=== PATIENT | female | born 1995 | race American Indian/Alaskan Native ===

== ENCOUNTER 2016-06-02 16:21 | Emergency (ER) | payer SELFPAY ==
[2016-06-02] MEDS ORDERED: TYLENOL ONE (19:27)
[2016-06-02] MEDS ORDERED: TYLENOL PO ONE (20:03)
--- NOTE | 2016-06-02 21:14 | Emergency Department Report ---
HPI - General Chief Complaint: Upper Respiratory Infection Time Seen by Provider: 06/02/16 21:08 - HPI HPI: 20-year-old female no past medical history comes in for complaint of fever bodyaches, headache,chills, sore throat onset 2 days ago. Patient denies any nausea no vomiting. She denies any sick contact is not traveled outside the country in the last 30 days only allergies is to iodine. ED Past Medical Hx - Past Medical History Hx Asthma: Yes - Social History Smoking Status: Never Smoker Substance Use Type: Marijuana - Medications Home Medications: Home Medications Medication Instructions Recorded Confirmed Last Taken Type Ibuprofen [Motrin] 800 mg PO Q8HR PRN #60 tablet 12/28/14 Unknown Rx traMADol [Ultram] 50 mg PO Q6HR PRN #60 tablet 12/28/14 Unknown Rx Amoxicillin [Amoxicillin TAB] 875 mg PO BID #20 tablet 10/24/15 Unknown Rx Ibuprofen [Motrin 800 MG tab] 800 mg PO Q8HR PRN #30 tablet 10/24/15 Unknown Rx Famotidine [Pepcid] 20 mg PO BID #20 tablet 12/10/15 Unknown Rx diphenhydrAMINE [Benadryl CAP] 25 mg PO Q6HR PRN #25 capsule 12/10/15 Unknown Rx methylPREDNISolone [Medrol] 4 mg PO DAILY #1 tab.ds.pk 12/10/15 Unknown Rx ED Review of Systems ROS: Stated complaint: FEVER,SORE THROAT Other details as noted in HPI Constitutional: chills, fever ENT: throat pain Respiratory: denies: cough, shortness of breath Skin: as per HPI Neurological: headache Physical Exam - Physical Exam Vital Signs: Vital Signs 06/02/16 06/02/16 16:44 20:03 Temperature 101.3 F H Pulse Rate 110 H Respiratory 22 18 Rate Blood Pressure 128/82 O2 Sat by Pulse 99 Oximetry Physical Exam: GENERAL: Alert and oriented x3, no apparent distress, Normal Gait, atraumatic. HEAD: Head is normocephalic and a-traumatic. EYES: Extra ocular muscles are intact. Pupils are equal, round, and reactive to light and accommodation. EARS: symetrical, atraumatic, non tender, ear canal clear and moderate cerumen, tympanic membrance non inflamed. gross auditory nml bilaterally. NOSE: Nose symetrical, Nontender,Nares appeared normal. MOUTH:Mouth is well hydrated and without lesions. Tonsils erythematous and swollen, Uvula midline, Tongue not elevated. Mucous membranes are moist. Posterior pharynx with exudate . Patent airways. NECK: Supple. Non edematous, No carotid bruits. No lymphadenopathy or thyromegaly. LUNGS: Symetrical with respiration, No wheezing, no rales or crackles, CTAB. HEART: S1, S2 present, regular rate and rhythm without murmur, no rubs, no gallops. NEUROLOGIC: No focal Deficit, Cranial nerves II through XII are grossly intact. No loss of sensation, No facial droop, Negative rhomberg. PSYCHIATRIC: Mood is congruent with affect, denies suicidal or homicidal ideations. SKIN: Warm and dry, No lesions, No ulceration or induration present ED Course Vital Signs 06/02/16 06/02/16 16:44 20:03 Temperature 101.3 F H Pulse Rate 110 H Respiratory 22 18 Rate Blood Pressure 128/82 O2 Sat by Pulse 99 Oximetry - Reevaluation(s) Reevaluation #1: 06/02/16 21:17 Patient's been evaluated by this provider fast track. Strep came back positive. Patient was given Tylenol in triage she reports feels somewhat better. We'll discharge patient on amoxicillin 875 mg 1 tablet by mouth 3 times a day for 10 days. Have her follow with the primary care provider she can take Tylenol or Motrin for pain ED Medical Decision Making - Medical Decision Making Assessment evaluated fast track. By this provider. We will give patient penicillin G1.2 1.2 million units IM once. Critical care attestation.: If time is entered above; I have spent that time in minutes in the direct care of this critically ill patient, excluding procedure time. ED Disposition Clinical Impression: Streptococcal pharyngitis Disposition: DISCHARGED TO HOME OR SELFCARE Is pt being admited?: No Does the pt Need Aspirin: No Condition: Stable Instructions: Strep Throat (ED) Additional Instructions: And take Tylenol Motrin for pain. He been treated with penicillin for your strep infection. Follow-up with the primary care provider if symptoms get worse Referrals: PRIMARY CARE, [Primary Care Provider] - 3-5 Days [facility] [Outside] - 3-5 Days Forms: Work/School Release Form(ED)
[2016-06-02] MEDS ORDERED: BICILLIN L-A IM ONE (21:24)
[2016-06-02 22:39] VITALS: BP 122/89
== END 2016-06-02 22:40 | disposition home or self-care (01) ==
LOC: ED 16:21
DX: J02.0 Streptococcal pharyngitis (principal); J45.909 Unspecified asthma, uncomplicated; F12.90 Cannabis use, unspecified, uncomplicated
CPT/HCPCS: 87400; 87430; 96372; 99283; J0561

== ENCOUNTER 2017-01-01 13:27 | Emergency (ER) | payer SELFPAY ==
[2017-01-01 14:06] VITALS: BP 118/92
[2017-01-01 17:45] LABS: Bilirubin,Urine NEG (Negative); Blood,Urine NEG (Negative); Ketones,Urine NEG (Negative); Leukocyte Esterase,Urine MOD (Negative); Mucus,Urine FEW /HPF; Nitrite,Urine NEG (Negative); Protein,Urine <15 mg/dL mg/dL (Negative); Urobilinogen,Urine < 2.0 mg/dL (<2.0)
--- NOTE | 2017-01-01 18:18 | Emergency Department Report ---
ED Female HPI - General Chief complaint: Urogenital-Female Stated complaint: UROGENTELIA-FEMALE Time Seen by Provider: 01/01/17 16:28 Source: patient Mode of arrival: Ambulatory Limitations: No Limitations - History of Present Illness Initial comments: This is a 21-year-old female nontoxic, well nourished in appearance, no acute signs of distress presents to the ED complaining of that presents with vaginal bumps, vaginal odor, and painful urination x1 week. Patient stated she had she got drunk, smoked week and did ecstacy and performed a orgy and then a week later developed these symptoms. Patient also stated she had been using a razor to the area and then developed these bumps. Patient denies any vaginal discharge, fever, chills, nausea, vomiting, chest pain, shortness of breath, polyuria, hematuria, numbness or tingling. Patient states allergies to iodine. Medical history includes asthma. Patient states she is concerned STD and wanted to be treated empirically. MD Complaint: dysuria, possible STD -: Gradual, week(s) (1) Radiation: non-radiating Severity: mild Severity scale (0 -10): 6 Quality: burning Consistency: constant Improves with: none Worsens with: none Are you Now?: No Associated Symptoms: dysuria. denies: vaginal discharge, vaginal bleeding, abdominal pain, nausea/vomiting, fever/chills, headaches, loss of appetite, hematuria, rash, seizure, shortness of breath, syncope, weakness - Related Data Sexually active: Yes Previous Rx's Medication Instructions Recorded Last Taken Type Ibuprofen [Motrin] 800 mg PO Q8HR PRN #60 tablet 12/28/14 Unknown Rx traMADol [Ultram] 50 mg PO Q6HR PRN #60 tablet 12/28/14 Unknown Rx Amoxicillin [Amoxicillin TAB] 875 mg PO BID #20 tablet 10/24/15 Unknown Rx Ibuprofen [Motrin 800 MG tab] 800 mg PO Q8HR PRN #30 tablet 10/24/15 Unknown Rx Famotidine [Pepcid] 20 mg PO BID #20 tablet 12/10/15 Unknown Rx diphenhydrAMINE [Benadryl CAP] 25 mg PO Q6HR PRN #25 capsule 12/10/15 Unknown Rx methylPREDNISolone [Medrol] 4 mg PO DAILY #1 tab.ds.pk 12/10/15 Unknown Rx metroNIDAZOLE [Flagyl] 500 mg PO Q12HR #14 tab 01/01/17 Unknown Rx Allergies Allergy/AdvReac Type Severity Reaction Status Date / Time bee venom protein (honey bee) Allergy Anaphylaxis Verified 01/01/17 14:07 iodine Allergy Rash Verified 06/02/16 16:47 ED Review of Systems ROS: Stated complaint: UROGENTELIA-FEMALE Other details as noted in HPI Constitutional: denies: chills, fever Eyes: denies: eye pain, eye discharge, vision change ENT: denies: ear pain, throat pain Respiratory: denies: cough, shortness of breath, wheezing Cardiovascular: denies: chest pain, palpitations Endocrine: no symptoms reported Gastrointestinal: denies: abdominal pain, nausea, diarrhea Genitourinary: dysuria. denies: urgency, discharge Musculoskeletal: denies: back pain, joint swelling, arthralgia Skin: denies: rash, lesions Neurological: denies: headache, weakness, paresthesias Psychiatric: denies: anxiety, depression Hematological/Lymphatic: denies: easy bleeding, easy bruising ED Past Medical Hx - Past Medical History Previous Medical History?: Yes Hx Asthma: Yes - Surgical History Past Surgical History?: No - Social History Smoking Status: Current Every Day Smoker Substance Use Type: None - Medications Home Medications: Home Medications Medication Instructions Recorded Confirmed Last Taken Type Ibuprofen [Motrin] 800 mg PO Q8HR PRN #60 tablet 12/28/14 Unknown Rx traMADol [Ultram] 50 mg PO Q6HR PRN #60 tablet 12/28/14 Unknown Rx Amoxicillin [Amoxicillin TAB] 875 mg PO BID #20 tablet 10/24/15 Unknown Rx Ibuprofen [Motrin 800 MG tab] 800 mg PO Q8HR PRN #30 tablet 10/24/15 Unknown Rx Famotidine [Pepcid] 20 mg PO BID #20 tablet 12/10/15 Unknown Rx diphenhydrAMINE [Benadryl CAP] 25 mg PO Q6HR PRN #25 capsule 12/10/15 Unknown Rx methylPREDNISolone [Medrol] 4 mg PO DAILY #1 tab.ds.pk 12/10/15 Unknown Rx metroNIDAZOLE [Flagyl] 500 mg PO Q12HR #14 tab 01/01/17 Unknown Rx ED Physical Exam - General Limitations: No Limitations General appearance: alert, in no apparent distress - Head Head exam: Present: atraumatic, normocephalic, normal inspection - Eye Eye exam: Present: normal appearance, PERRL, EOMI. Absent: scleral icterus, conjunctival injection, nystagmus, periorbital swelling, periorbital tenderness Pupils: Present: normal accommodation - ENT ENT exam: Present: normal exam, normal orophraynx, mucous membranes moist, TM's normal bilaterally, normal external ear exam - Neck Neck exam: Present: normal inspection, full ROM. Absent: tenderness, meningismus, lymphadenopathy, thyromegaly - Respiratory Respiratory exam: Present: normal lung sounds bilaterally. Absent: respiratory distress, wheezes, rales, rhonchi, stridor, chest wall tenderness, accessory muscle use, decreased breath sounds, prolonged expiratory - Cardiovascular Cardiovascular Exam: Present: regular rate, normal rhythm, normal heart sounds. Absent: systolic murmur, diastolic murmur, rubs, gallop - GI/Abdominal GI/Abdominal exam: Present: soft, normal bowel sounds. Absent: distended, tenderness, guarding, rebound, rigid, diminished bowel sounds - Rectal Rectal exam: Present: deferred - External exam: Present: normal external exam, other (small erythma papules which looks like irritation and consistant with Pseudofolliculitis barbae. [employer] present during exam.). Absent: erythema, swelling, lesions, lacerations, ecchymosis, bleeding Speculum exam: Present: normal speculum exam, cervical discharge (yellow white thick with foul odor), other ([employer] senior officer present during exam.). Absent: erythema, vaginal discharge, vaginal bleeding, foreign body, tissue, laceration Bi-manual exam: Present: normal bi-manual exam, other ([employer] senior officer present during exam.). Absent: cervical motion tendernes, adnexal tenderness, adnexal mass, uterine enlargement, uterine tenderness - Extremities Exam Extremities exam: Present: normal inspection, full ROM, normal capillary refill. Absent: tenderness, pedal edema, joint swelling, calf tenderness - Back Exam Back exam: Present: normal inspection, full ROM. Absent: tenderness, CVA tenderness (R), CVA tenderness (L), muscle spasm, paraspinal tenderness, vertebral tenderness, rash noted - Neurological Exam Neurological exam: Present: alert, oriented X3, CN II-XII intact, normal gait, reflexes normal - Psychiatric Psychiatric exam: Present: normal affect, normal mood - Skin Skin exam: Present: warm, dry, intact, normal color. Absent: rash ED Course Vital Signs 01/01/17 01/01/17 01/01/17 13:38 13:55 13:58 Temperature 98.2 F 98.2 F 97.9 F Pulse Rate 94 H 94 H 74 Respiratory 14 16 18 Rate Blood Pressure 140/77 118/92 Blood Pressure 140/77 [Right] O2 Sat by Pulse 100 100 99 Oximetry - Reevaluation(s) Reevaluation #1: 01/01/17 18:29 Patient is speaking in full sentences with no signs of distress noted. ED Medical Decision Making - Medical Decision Making 21-year-old female that presents with bacterial vaginosis. Patient was examined by me patient is stable. Patient received Rocephin and azithromycin in the ED because patient is concerned and wants to be treated for empirically for STD. Patient will be treated with Flagyl 7 days. Patient was instructed to follow-up with a primary care doctor in 3-5 days or if symptoms worsen and continue return to emergency room as soon as possible possible. Patient is hemodynamically stable with stable vital signs. Patient states he is feeling better. At time time of discharge, the patient does not seem toxic or ill in appearance. No acute signs of distress noted. Patient agrees to discharge treatment plan of care. No further questions noted by the patient. Patient is also instructed to speak to her sexual partners for possible STD. Critical care attestation.: If time is entered above; I have spent that time in minutes in the direct care of this critically ill patient, excluding procedure time. ED Disposition Clinical Impression: Possible exposure to STD, Bacterial vaginosis Disposition: DC-01 TO HOME OR SELFCARE Is pt being admited?: No Does the pt Need Aspirin: No Condition: Stable Instructions: Bacterial Vaginosis (ED), Safe Sex (ED), Metronidazole (By mouth) Additional Instructions: Follow-up with a primary care doctor in 3-5 days or if symptoms worsen and continue return to emergency room as soon as possible possible. Do no drink any alcohol while taking antibiotics. Prescriptions: metroNIDAZOLE [Flagyl] 500 mg PO Q12HR #14 tab Referrals: PRIMARY MD JOCELYNE [Primary Care Provider] - 3-5 Days NUZHAT STEPHEN MD [Staff Physician] - 3-5 Days CHLOE ROSE MD [Staff Physician] - 3-5 Days [facility] [Outside] - 3-5 Days [facility] [Outside] - 3-5 Days Forms: STI Treatment and Prevention, Work/School Release Form(ED)
[2017-01-01] MEDS: XYLOCAINE 1% MPF 5 mL INFILTRATI ONE (19:09)
[2017-01-01] MEDS: ZITHROMAX PO ONE (19:09)
[2017-01-01] MEDS: ROCEPHIN IM ONE (19:09)
== END 2017-01-01 19:30 | disposition home or self-care (01) ==
LOC: ED 13:27
DX: N76.0 Acute vaginitis (principal); J45.909 Unspecified asthma, uncomplicated; F17.200 Nicotine dependence, unspecified, uncomplicated; Z91.030 Bee allergy status; Z91.048 Other nonmedicinal substance allergy status
CPT/HCPCS: 81001; 81025; 87210; 87591; 96372; 99284; J0696

== ENCOUNTER 2017-07-02 08:22 | Emergency (ER) | payer SELFPAY ==
[2017-07-02 08:30] VITALS: BP 142/90
[2017-07-02] MEDS ORDERED: ROBITUSSIN PO ONE (09:39)
[2017-07-02] MEDS ORDERED: DELTASONE PO ONE (09:39)
[2017-07-02] MEDS ORDERED: DUONEB *Not for PRN Use IH ONE (09:39)
--- NOTE | 2017-07-02 09:47 | Emergency Department Report ---
Minor Respiratory - HPI Chief Complaint: Adult Asthma Stated Complaint: TROUBLE BREATHING Time Seen by Provider: 07/02/17 09:03 Duration: 2 Days Minor Respiratory: Yes Able to Tolerate Fluids, Yes Cough, No Rhinorrhea, No Sore Throat, No Ear Pain, No Sick Contacts, No Hemoptysis, No Chest Pain, No Shortness of Breath, No Fever Other History: Patient is a 21-year-old female who presents to the ED complaining of cough since yesterday. Patient admits history of asthma and takes Proventil inhaler. She denies fever nausea vomiting abdominal pain, chest pain shortness of breath or any other problem ED Review of Systems ROS: Stated complaint: TROUBLE BREATHING Other details as noted in HPI Constitutional: denies: chills, fever Eyes: denies: eye pain, eye discharge, vision change ENT: denies: ear pain, throat pain Respiratory: cough. denies: shortness of breath, wheezing Cardiovascular: denies: chest pain, palpitations Endocrine: no symptoms reported Gastrointestinal: denies: abdominal pain, nausea, diarrhea Genitourinary: denies: urgency, dysuria, discharge Musculoskeletal: denies: back pain, joint swelling, arthralgia Skin: denies: rash, lesions Neurological: denies: headache, weakness, paresthesias Psychiatric: denies: anxiety, depression Hematological/Lymphatic: denies: easy bleeding, easy bruising ED Past Medical Hx - Past Medical History Previous Medical History?: Yes Hx Asthma: Yes - Surgical History Past Surgical History?: No - Social History Smoking Status: Current Every Day Smoker Substance Use Type: Prescribed, Other - Medications Home Medications: Home Medications Medication Instructions Recorded Confirmed Last Taken Type Famotidine [Pepcid] 20 mg PO BID #20 tablet 12/10/15 Unknown Rx diphenhydrAMINE [Benadryl CAP] 25 mg PO Q6HR PRN #25 capsule 12/10/15 Unknown Rx Loratadine [Claritin] 10 mg PO DAILY #20 tablet 07/02/17 Unknown Rx ALBUTEROL NEB's [Proventil 0.083% 2.5 mg IH 4XD PRN #75 ml 07/04/17 Unknown Rx NEBS] Azithromycin [Zithromax] 250 mg PO DAILY #6 tablet 07/04/17 Unknown Rx Nebulizer [Compact Compressor 1 each MC DAILY #1 each 07/04/17 Unknown Rx Nebulizer] Prednisone [predniSONE 10 mg 10 mg PO .TAPER #1 tab.ds.pk 07/04/17 Unknown Rx (6-Day Pack, 21 Tabs)] guaiFENesin/CODEINE [Robitussin AC] 5 ml PO Q6HR PRN #120 ml 07/04/17 Unknown Rx Minor Respiratory Exam - Exam General: Vital signs noted. No distress. Alert and acting appropriately. HEENT: Yes Moist Mucous Membranes, No Pharyngeal Erythema, No Pharyngeal Exudates, No Rhinorrhea, No Conjuctival Injection, No Frontal Tenderness, No Maxillary Tenderness Ear: Neither TM Bulge, Neither TM Erythema, Neither EAC Pain, Neither EAC Discharge Neck: Yes Supple, No Adenopathy Lungs: Yes Good Air Exchange, Yes Cough, No Wheezes, No Ronchi, No Stridor, No Labored Respirations, No Retractions, No Use of Accessory Muscles, No Other Abnormal Lung Sounds Heart: Yes Regular, No Murmur Abdomen: Yes Normal Bowel Sounds, No Tenderness, No Peritoneal Signs Skin: No Rash, No Edema Neurologic: Alert and oriented, no deficits. Musculoskeletal: Unremarkable. ED Course Vital Signs 07/02/17 08:26 Temperature 98.8 F Pulse Rate 106 H Respiratory 22 Rate Blood Pressure 142/90 O2 Sat by Pulse 99 Oximetry ED Medical Decision Making - Medical Decision Making 21-year-old female presents with bronchitis/asthma ED course: Patient received breathing treatme, prednisone and Robitussin-AC D Discussed the patient will go home on cough suppressant and to continue to use her Proventil inhaler Vital signs are normal. Patient is no respiratory distress She is resting comfortably in ed Discussed the patient to follow up with primary care physician. Return to ED if worsening symptoms. Critical care attestation.: If time is entered above; I have spent that time in minutes in the direct care of this critically ill patient, excluding procedure time. ED Disposition Clinical Impression: Bronchitis Asthma Qualifiers: Asthma severity: mild Asthma persistence: intermittent Asthma complication type : uncomplicated Qualified Code(s): J45.20 - Mild intermittent asthma, uncomplicated Disposition: - TO HOME OR SELFCARE Is pt being admited?: No Does the pt Need Aspirin: No Condition: Stable Instructions: Asthma (ED), Acute Bronchitis (ED), Chronic Bronchitis (ED) Additional Instructions: Make sure to follow up with the primary care physician as discussed. Take all your medications as you've been prescribed. If you have any worsening symptoms or develop new symptoms please return to ED immediately. Prescriptions: Loratadine [Claritin] 10 mg PO DAILY #20 tablet Referrals: HUGH MURGUIA MD [Primary Care Provider] - 3-5 Days PIERO THRASHER MD [Referring] - 3-5 Days [facility] [Outside] - 3-5 Days [facility] [Outside] - 3-5 Days Forms: Work/School Release Form(ED) Time of Disposition: 10:11
== END 2017-07-02 10:26 | disposition home or self-care (01) ==
LOC: ED 08:22
DX: J45.909 Unspecified asthma, uncomplicated (principal); F17.200 Nicotine dependence, unspecified, uncomplicated
CPT/HCPCS: 99283; J7512

== ENCOUNTER 2017-07-04 05:42 | Emergency (ER) | payer SELFPAY ==
[2017-07-04 06:13] VITALS: BP 127/85
--- NOTE | 2017-07-04 06:42 | XRay Report ---
FINAL REPORT EXAM: XR CHEST ROUTINE 2V HISTORY: Cough. TECHNIQUE: Frontal and lateral radiographs of the chest were obtained. No prior studies are available for comparison. FINDINGS: The cardiac silhouette and mediastinum are within normal limits. The lungs are clear bilaterally, without focal infiltrate or effusion. There is no pneumothorax. No significant osseous abnormalities are identified. IMPRESSION: No focal infiltrate or effusion.
[2017-07-04 06:50] LABS: HCG Qualitative,Urine Negative (Negative)
[2017-07-04] MEDS ORDERED: PROVENTIL IH ONE (08:53)
[2017-07-04] MEDS ORDERED: ATROVENT IH ONE (08:53)
--- NOTE | 2017-07-04 08:57 | Emergency Department Report ---
ED Shortness of Breath HPI - General Chief Complaint: Upper Respiratory Infection Stated Complaint: DIFFICULTY BREATHING/COUGHING Time Seen by Provider: 07/04/17 08:52 Source: patient Mode of arrival: Stretcher Limitations: No Limitations - History of Present Illness Initial Comments: Pt presents with continued SOB x 5 days with coughing and sinus drainage. Denies fevers. Relief with albuterol, but brief and has used two inhalers this week. MD Complaint: shortness of breath, cough, "asthma attack" -: Gradual, days(s) (5) Consistency: constant Improves With: bronchodilators Worsens With: coughing Known History Of: asthma Context: recent URI Associated Symptoms: cough Treatments Prior to Arrival: bronchodilator - Related Data Home Oxygen Therapy: No Previous Rx's Medication Instructions Recorded Last Taken Type Famotidine [Pepcid] 20 mg PO BID #20 tablet 12/10/15 Unknown Rx diphenhydrAMINE [Benadryl CAP] 25 mg PO Q6HR PRN #25 capsule 12/10/15 Unknown Rx Loratadine [Claritin] 10 mg PO DAILY #20 tablet 07/02/17 Unknown Rx ALBUTEROL NEB's [Proventil 0.083% 2.5 mg IH 4XD PRN #75 ml 07/04/17 Unknown Rx NEBS] Azithromycin [Zithromax] 250 mg PO DAILY #6 tablet 07/04/17 Unknown Rx Nebulizer [Compact Compressor 1 each MC DAILY #1 each 07/04/17 Unknown Rx Nebulizer] Prednisone [predniSONE 10 mg 10 mg PO .TAPER #1 tab.ds.pk 07/04/17 Unknown Rx (6-Day Pack, 21 Tabs)] guaiFENesin/CODEINE [Robitussin AC] 5 ml PO Q6HR PRN #120 ml 07/04/17 Unknown Rx Allergies Allergy/AdvReac Type Severity Reaction Status Date / Time bee venom protein (honey bee) Allergy Anaphylaxis Verified 01/01/17 14:07 iodine Allergy Rash Verified 06/02/16 16:47 ED Review of Systems ROS: Stated complaint: DIFFICULTY BREATHING/COUGHING Other details as noted in HPI Comment: All other systems reviewed and negative Constitutional: denies: chills, fever Eyes: denies: eye pain, eye discharge, vision change ENT: congestion. denies: ear pain, throat pain Respiratory: cough, shortness of breath. denies: wheezing Cardiovascular: denies: chest pain, palpitations Endocrine: no symptoms reported Gastrointestinal: denies: abdominal pain, nausea, diarrhea Genitourinary: denies: urgency, dysuria, discharge Musculoskeletal: denies: back pain, joint swelling, arthralgia Skin: denies: rash, lesions Neurological: denies: headache, weakness, paresthesias Psychiatric: denies: anxiety, depression Hematological/Lymphatic: denies: easy bleeding, easy bruising ED Past Medical Hx - Past Medical History Hx Asthma: Yes Additional medical history: Obesity - Social History Smoking Status: Current Every Day Smoker Substance Use Type: Marijuana - Medications Home Medications: Home Medications Medication Instructions Recorded Confirmed Last Taken Type Famotidine [Pepcid] 20 mg PO BID #20 tablet 12/10/15 Unknown Rx diphenhydrAMINE [Benadryl CAP] 25 mg PO Q6HR PRN #25 capsule 12/10/15 Unknown Rx Loratadine [Claritin] 10 mg PO DAILY #20 tablet 07/02/17 Unknown Rx ALBUTEROL NEB's [Proventil 0.083% 2.5 mg IH 4XD PRN #75 ml 07/04/17 Unknown Rx NEBS] Azithromycin [Zithromax] 250 mg PO DAILY #6 tablet 07/04/17 Unknown Rx Nebulizer [Compact Compressor 1 each MC DAILY #1 each 07/04/17 Unknown Rx Nebulizer] Prednisone [predniSONE 10 mg 10 mg PO .TAPER #1 tab.ds.pk 07/04/17 Unknown Rx (6-Day Pack, 21 Tabs)] guaiFENesin/CODEINE [Robitussin AC] 5 ml PO Q6HR PRN #120 ml 07/04/17 Unknown Rx ED Physical Exam - General Limitations: No Limitations General appearance: alert, in no apparent distress - Head Head exam: Present: atraumatic, normocephalic - Eye Eye exam: Present: normal appearance, PERRL, EOMI - ENT ENT exam: Present: normal orophraynx, mucous membranes moist - Neck Neck exam: Present: normal inspection. Absent: meningismus - Respiratory Respiratory exam: Present: decreased breath sounds, other (coughing). Absent: respiratory distress, wheezes, rhonchi, accessory muscle use - Cardiovascular Cardiovascular Exam: Present: regular rate, normal rhythm. Absent: systolic murmur, diastolic murmur, rubs, gallop - GI/Abdominal GI/Abdominal exam: Present: soft, normal bowel sounds. Absent: tenderness, guarding, rebound - Extremities Exam Extremities exam: Present: normal inspection - Back Exam Back exam: Present: normal inspection - Neurological Exam Neurological exam: Present: alert, oriented X3 - Psychiatric Psychiatric exam: Present: normal affect, normal mood - Skin Skin exam: Present: warm, dry, intact, normal color. Absent: rash ED Course Vital Signs 07/04/17 05:53 Temperature 99 F Pulse Rate 106 H Respiratory 20 Rate Blood Pressure 127/85 O2 Sat by Pulse 97 Oximetry - Reevaluation(s) Reevaluation #1: 07/04/17 11:08 Pt resting comfortably in NAD. Stable for d/c. ED Medical Decision Making - Lab Data urine preg negative - Radiology Data Radiology results: report reviewed naf - Medical Decision Making Pt presents with persistent cough, wheezing. Given Duoneb x 2 with relief as well as Cheratussin and Solu-Medrol IM. Will give Rx for home nebs and have her see PCP in 3 days for recheck. - Differential Diagnosis pna, asthma, sinusitis Critical care attestation.: If time is entered above; I have spent that time in minutes in the direct care of this critically ill patient, excluding procedure time. ED Disposition Clinical Impression: Respiratory tract infection Asthma exacerbation Qualifiers: Asthma severity: mild Asthma persistence: intermittent Qualified Code(s): J45.21 - Mild intermittent asthma with (acute) exacerbation Disposition: TO HOME OR SELFCARE Is pt being admited?: No Condition: Good Instructions: Asthma (ED) Prescriptions: ALBUTEROL NEB's [Proventil 0.083% NEBS] 2.5 mg IH 4XD PRN #75 ml PRN Reason: Wheezing Azithromycin [Zithromax] 250 mg PO DAILY #6 tablet guaiFENesin/CODEINE [Robitussin AC] 5 ml PO Q6HR PRN #120 ml PRN Reason: Cough Nebulizer [Compact Compressor Nebulizer] 1 each MC DAILY #1 each Prednisone [predniSONE 10 mg (6-Day Pack, 21 Tabs)] 10 mg PO .TAPER #1 tab.ds.pk Referrals: PRIMARY CARE,MD [Primary Care Provider] - 3-5 Days Time of Disposition: 11:08
[2017-07-04] MEDS ORDERED: ROBITUSSIN AC PO ONE (09:00)
== END 2017-07-04 11:22 | disposition home or self-care (01) ==
LOC: ED 05:42
DX: J45.901 Unspecified asthma with (acute) exacerbation (principal); J06.9 Acute upper respiratory infection, unspecified; F17.200 Nicotine dependence, unspecified, uncomplicated; F12.10 Cannabis abuse, uncomplicated; Z91.030 Bee allergy status; Z91.041 Radiographic dye allergy status
CPT/HCPCS: 71046; 81025; 96372; 99284; J2930

== ENCOUNTER 2017-07-14 10:16 | Emergency (ER) | payer SELFPAY ==
[2017-07-14 10:57] VITALS: BP 135/82
[2017-07-14] MEDS ORDERED: ZOFRAN ODT PO ONE (13:00)
[2017-07-14] MEDS ORDERED: MORPHINE IM ONE (13:00)
[2017-07-14] MEDS ORDERED: DECADRON IV ONE (13:00)
[2017-07-14] MEDS ORDERED: BICILLIN L-A IM ONE (13:00)
--- NOTE | 2017-07-14 13:05 | Emergency Department Report ---
ED ENT HPI - General Chief complaint: Sore Throat Stated complaint: FLU LIKE SYMPTOMS Time Seen by Provider: 07/14/17 12:52 Source: patient Mode of arrival: Ambulatory Limitations: No Limitations - History of Present Illness Initial comments: Patient is a 21-year-old female who is presenting with sore throat. Patient states she is able to swallow her spit but chooses to spit it out instead of swallowing it secondary to pain. Patient has had a low-grade fever 2 episodes of nausea and vomiting yesterday. Patient states that total symptoms of pain present for almost 3 days. Patient denies any chest pain abdominal pain shortness of breath headache at this time. - Related Data Previous Rx's Medication Instructions Recorded Last Taken Type Famotidine [Pepcid] 20 mg PO BID #20 tablet 12/10/15 Unknown Rx diphenhydrAMINE [Benadryl CAP] 25 mg PO Q6HR PRN #25 capsule 12/10/15 Unknown Rx Loratadine [Claritin] 10 mg PO DAILY #20 tablet 07/02/17 Unknown Rx ALBUTEROL NEB's [Proventil 0.083% 2.5 mg IH 4XD PRN #75 ml 07/04/17 Unknown Rx NEBS] Azithromycin [Zithromax] 250 mg PO DAILY #6 tablet 07/04/17 Unknown Rx Nebulizer [Compact Compressor 1 each MC DAILY #1 each 07/04/17 Unknown Rx Nebulizer] Prednisone [predniSONE 10 mg 10 mg PO .TAPER #1 tab.ds.pk 07/04/17 Unknown Rx (6-Day Pack, 21 Tabs)] guaiFENesin/CODEINE [Robitussin AC] 5 ml PO Q6HR PRN #120 ml 07/04/17 Unknown Rx HYDROcodone/APAP 7.5-325 [[place] 15 ml PO Q4HR PRN #150 oz 07/14/17 Unknown Rx 7.5-325 mg per 15 ML] Ondansetron [Zofran Odt] 4 mg PO TID PRN #10 tab.rapdis 07/14/17 Unknown Rx Allergies Allergy/AdvReac Type Severity Reaction Status Date / Time bee venom protein (honey bee) Allergy Anaphylaxis Verified 01/01/17 14:07 iodine Allergy Rash Verified 06/02/16 16:47 ED Dental HPI - General Chief complaint: Sore Throat Stated complaint: FLU LIKE SYMPTOMS Time Seen by Provider: 07/14/17 12:52 Source: patient Mode of arrival: Ambulatory Limitations: No Limitations - Related Data Previous Rx's Medication Instructions Recorded Last Taken Type Famotidine [Pepcid] 20 mg PO BID #20 tablet 12/10/15 Unknown Rx diphenhydrAMINE [Benadryl CAP] 25 mg PO Q6HR PRN #25 capsule 12/10/15 Unknown Rx Loratadine [Claritin] 10 mg PO DAILY #20 tablet 07/02/17 Unknown Rx ALBUTEROL NEB's [Proventil 0.083% 2.5 mg IH 4XD PRN #75 ml 07/04/17 Unknown Rx NEBS] Azithromycin [Zithromax] 250 mg PO DAILY #6 tablet 07/04/17 Unknown Rx Nebulizer [Compact Compressor 1 each MC DAILY #1 each 07/04/17 Unknown Rx Nebulizer] Prednisone [predniSONE 10 mg 10 mg PO .TAPER #1 tab.ds.pk 07/04/17 Unknown Rx (6-Day Pack, 21 Tabs)] guaiFENesin/CODEINE [Robitussin AC] 5 ml PO Q6HR PRN #120 ml 07/04/17 Unknown Rx HYDROcodone/APAP 7.5-325 [[place] 15 ml PO Q4HR PRN #150 oz 07/14/17 Unknown Rx 7.5-325 mg per 15 ML] Ondansetron [Zofran Odt] 4 mg PO TID PRN #10 tab.rapdis 07/14/17 Unknown Rx Allergies Allergy/AdvReac Type Severity Reaction Status Date / Time bee venom protein (honey bee) Allergy Anaphylaxis Verified 01/01/17 14:07 iodine Allergy Rash Verified 06/02/16 16:47 ED Review of Systems ROS: Stated complaint: FLU LIKE SYMPTOMS Other details as noted in HPI Comment: All other systems reviewed and negative ED Past Medical Hx - Past Medical History Hx Asthma: Yes Additional medical history: Obesity - Surgical History Past Surgical History?: No - Social History Smoking Status: Current Every Day Smoker Substance Use Type: None, Marijuana - Medications Home Medications: Home Medications Medication Instructions Recorded Confirmed Last Taken Type Famotidine [Pepcid] 20 mg PO BID #20 tablet 12/10/15 Unknown Rx diphenhydrAMINE [Benadryl CAP] 25 mg PO Q6HR PRN #25 capsule 12/10/15 Unknown Rx Loratadine [Claritin] 10 mg PO DAILY #20 tablet 07/02/17 Unknown Rx ALBUTEROL NEB's [Proventil 0.083% 2.5 mg IH 4XD PRN #75 ml 07/04/17 Unknown Rx NEBS] Azithromycin [Zithromax] 250 mg PO DAILY #6 tablet 07/04/17 Unknown Rx Nebulizer [Compact Compressor 1 each MC DAILY #1 each 07/04/17 Unknown Rx Nebulizer] Prednisone [predniSONE 10 mg 10 mg PO .TAPER #1 tab.ds.pk 07/04/17 Unknown Rx (6-Day Pack, 21 Tabs)] guaiFENesin/CODEINE [Robitussin AC] 5 ml PO Q6HR PRN #120 ml 07/04/17 Unknown Rx HYDROcodone/APAP 7.5-325 [[place] 15 ml PO Q4HR PRN #150 oz 07/14/17 Unknown Rx 7.5-325 mg per 15 ML] Ondansetron [Zofran Odt] 4 mg PO TID PRN #10 tab.rapdis 07/14/17 Unknown Rx ED Physical Exam - General Limitations: No Limitations General appearance: alert, in no apparent distress - Head Head exam: Present: atraumatic, normocephalic - Eye Eye exam: Present: normal appearance - ENT ENT exam: Present: mucous membranes moist, other (patient has bilateral tonsillar swelling with exudates with some anterior cervical lymph nodes) - Neck Neck exam: Present: normal inspection - Respiratory Respiratory exam: Present: normal lung sounds bilaterally. Absent: respiratory distress, wheezes, rales, rhonchi - Cardiovascular Cardiovascular Exam: Present: regular rate, normal rhythm. Absent: systolic murmur, diastolic murmur, rubs, gallop - GI/Abdominal GI/Abdominal exam: Present: soft, normal bowel sounds. Absent: distended, tenderness, guarding, rebound - Extremities Exam Extremities exam: Present: normal inspection - Back Exam Back exam: Present: normal inspection - Neurological Exam Neurological exam: Present: alert, oriented X3 - Psychiatric Psychiatric exam: Present: normal affect, normal mood - Skin Skin exam: Present: warm, dry, intact, normal color. Absent: rash ED Course Vital Signs 07/14/17 10:53 Temperature 100.7 F H Pulse Rate 125 H Respiratory 20 Rate Blood Pressure 135/82 O2 Sat by Pulse 100 Oximetry ED Medical Decision Making - Medical Decision Making Patient was given Decadron by saline Zofran and a shot of morphine. The patient be discharged home with meds for symptomatic relief. Critical care attestation.: If time is entered above; I have spent that time in minutes in the direct care of this critically ill patient, excluding procedure time. ED Disposition Clinical Impression: Exudative pharyngitis Disposition: TO HOME OR SELFCARE Is pt being admited?: No Does the pt Need Aspirin: No Condition: Stable Instructions: Tonsillitis (ED) Prescriptions: HYDROcodone/APAP 7.5-325 [[place] 7.5-325 mg per 15 ML] 15 ml PO Q4HR PRN #150 oz PRN Reason: Pain Ondansetron [Zofran Odt] 4 mg PO TID PRN #10 tab.rapdis PRN Reason: Nausea Referrals: PRIMARY CARE, [Primary Care Provider] - 3-5 Days
== END 2017-07-14 14:29 | disposition home or self-care (01) ==
LOC: ED 10:16
DX: J02.9 Acute pharyngitis, unspecified (principal); J45.909 Unspecified asthma, uncomplicated; F17.200 Nicotine dependence, unspecified, uncomplicated; F12.10 Cannabis abuse, uncomplicated; Z91.041 Radiographic dye allergy status; Z91.030 Bee allergy status
CPT/HCPCS: 96372; 96374; 99282; J0561; J1100; J2270; Q0162

== ENCOUNTER 2017-08-12 20:10 | Emergency (ER) | payer SELFPAY ==
[2017-08-12 20:41] VITALS: BP 131/83
[2017-08-12] MEDS ORDERED: TYLENOL PO ONE (22:21)
[2017-08-12] MEDS ORDERED: TYLENOL ONE (22:21)
--- NOTE | 2017-08-13 00:44 | Emergency Department Report ---
Minor Respiratory - HPI Chief Complaint: Sore Throat Stated Complaint: SORE THROAT Time Seen by Provider: 08/13/17 00:05 Duration: 3 Days Pain Location: Throat (sore throat), Ear (bilateral ear pain) Severity: moderate Minor Respiratory: Yes Rhinorrhea, Yes Sore Throat, Yes Able to Tolerate Fluids , Yes Ear Pain (bilateral ear pain), Yes Cough, Yes Fever, No Sick Contacts, No Hemoptysis, No Chest Pain, No Shortness of Breath Other History: This is a 22 female presents with sore throat, cough, and bilateral ear pain for 3 days. Patient reports being treated for bronchitis last month she started feeling better the symptoms returned 3 days ago. She is currently taken Tylenol or ibuprofen, Flonase, and Mucinex for symptom relief with no improvement of symptoms. Patient reports cough is worse at night and caused difficulty sleeping. She denies nausea or vomiting, chest pain, shortness of breath, wheezing, body aches, and abdominal pain. ED Review of Systems ROS: Stated complaint: SORE THROAT Other details as noted in HPI Constitutional: chills, fever ENT: ear pain (bilateral ear pain), throat pain, congestion. denies: dental pain Respiratory: cough. denies: shortness of breath, wheezing Cardiovascular: denies: chest pain, palpitations Gastrointestinal: denies: abdominal pain, nausea, vomiting, diarrhea Musculoskeletal: denies: back pain, joint swelling, arthralgia, myalgia Neurological: denies: headache, weakness, numbness, paresthesias Psychiatric: denies: anxiety, depression ED Past Medical Hx - Past Medical History Previous Medical History?: Yes Hx Asthma: Yes Additional medical history: Obesity - Surgical History Past Surgical History?: No - Social History Smoking Status: Current Some Day Smoker Substance Use Type: None - Medications Home Medications: Home Medications Medication Instructions Recorded Confirmed Last Taken Type Famotidine [Pepcid] 20 mg PO BID #20 tablet 12/10/15 Unknown Rx diphenhydrAMINE [Benadryl CAP] 25 mg PO Q6HR PRN #25 capsule 12/10/15 Unknown Rx Loratadine [Claritin] 10 mg PO DAILY #20 tablet 07/02/17 Unknown Rx ALBUTEROL NEB's [Proventil 0.083% 2.5 mg IH 4XD PRN #75 ml 07/04/17 Unknown Rx NEBS] Azithromycin [Zithromax] 250 mg PO DAILY #6 tablet 07/04/17 Unknown Rx Nebulizer [Compact Compressor 1 each MC DAILY #1 each 07/04/17 Unknown Rx Nebulizer] Prednisone [predniSONE 10 mg 10 mg PO .TAPER #1 tab.ds.pk 07/04/17 Unknown Rx (6-Day Pack, 21 Tabs)] guaiFENesin/CODEINE [Robitussin AC] 5 ml PO Q6HR PRN #120 ml 07/04/17 Unknown Rx HYDROcodone/APAP 7.5-325 [[place] 15 ml PO Q4HR PRN #150 oz 07/14/17 Unknown Rx 7.5-325 mg per 15 ML] Ondansetron [Zofran Odt] 4 mg PO TID PRN #10 tab.rapdis 07/14/17 Unknown Rx Benzonatate [Tessalon Perle] 100 mg PO TID PRN #30 capsule 08/13/17 Unknown Rx Cetirizine HCl [Zyrtec] 10 mg PO DAILY #30 tablet 08/13/17 Unknown Rx Cipro/Dexameth 0.3/0.1% [Ciprodex 4 drops OT BID #1 bottle 08/13/17 Unknown Rx OTIC] Minor Respiratory Exam - Exam General: Vital signs noted. No distress. Alert and acting appropriately. HEENT: Yes Pharyngeal Erythema, Yes Moist Mucous Membranes, Yes Rhinorrhea ( congested turbinates bilaterally with clear discharge), No Pharyngeal Exudates, No Conjuctival Injection, No Frontal Tenderness, No Maxillary Tenderness Ear: Neither TM Bulge, Neither TM Erythema (bilateral erythematous ear canals, mobile TMs, tenderness), Neither EAC Pain, Neither EAC Discharge Neck: Yes Supple, No Adenopathy Lungs: Yes Good Air Exchange, Yes Cough, No Wheezes, No Ronchi, No Stridor, No Labored Respirations, No Retractions, No Use of Accessory Muscles, No Other Abnormal Lung Sounds Heart: Yes Regular, No Murmur Abdomen: Yes Normal Bowel Sounds, No Tenderness, No Peritoneal Signs Skin: No Rash, No Edema Neurologic: Alert and oriented, no deficits. Musculoskeletal: Unremarkable. ED Course Vital Signs 08/12/17 20:38 Temperature 99.8 F H Pulse Rate 111 H Respiratory 17 Rate Blood Pressure 131/83 O2 Sat by Pulse 97 Oximetry Vital Signs 08/12/17 08/13/17 20:38 01:03 Temperature 99.8 F H Pulse Rate 111 H 87 Respiratory 17 17 Rate Blood Pressure 131/83 O2 Sat by Pulse 97 99 Oximetry ED Medical Decision Making - Medical Decision Making 22 y.o. female that presents with URI symptoms. Patient examined by me and stable. No distress noted. Vitals stable. Patient given Tylenol 650 mg by mouth Lanoxin ER. Her rate is elevated right returned to normal prior to discharge. Physical sinus susceptible of upper respiratory infection and otitis externa. Patient completed a Z-Jason and steroids last month still had a pulse viral cough and congestion. Started on cetirizine, Cipro otic, and benzonatate. Instructed to continue taking Tylenol or ibuprofen for fever. Cough may continue for 3-4 weeks. Discharged home. Encouraged to do supportive care for URI. Follow-up with primary care provider in 2-3 days. Critical care attestation.: If time is entered above; I have spent that time in minutes in the direct care of this critically ill patient, excluding procedure time. ED Disposition Clinical Impression: Upper respiratory infection Qualifiers: URI type: acute nasopharyngitis (common cold) Qualified Code(s): J00 - Acute nasopharyngitis [common cold] Otitis externa Qualifiers: Otitis externa type: swimmer's ear Chronicity: acute Laterality: bilateral Qualified Code(s): H60.333 - Swimmer's ear, bilateral Disposition: TO HOME OR SELFCARE Is pt being admited?: No Does the pt Need Aspirin: No Condition: Stable Instructions: Otitis Externa (ED), Upper Respiratory Infection (ED), Cold Symptoms (ED) Additional Instructions: Increase fluid intake and rest. Wash hands frequently. Continue taking tylenol or ibuprofen to control fever. Take antibiotics as prescribed to avoid recurrence of the ear infection. Avoid high altitudes, may worsen the pain during ear infection. F/U with Primary Care Provider in 2-3 days. Return to ER if fever, SOB, or difficulty breathing after 48 hours of supportive care. Prescriptions: Benzonatate [Tessalon Perle] 100 mg PO TID PRN #30 capsule PRN Reason: Cough Cetirizine HCl [Zyrtec] 10 mg PO DAILY #30 tablet Cipro/Dexameth 0.3/0.1% [Ciprodex OTIC] 4 drops OT BID #1 bottle Referrals: [facility] [Outside] - 3-5 Days [facility] [Outside] - 3-5 Days [facility] [Outside] - 3-5 Days Time of Disposition: 01:06 Print Language: [id number]
== END 2017-08-13 01:17 | disposition home or self-care (01) ==
LOC: ED 20:10
DX: J06.9 Acute upper respiratory infection, unspecified (principal); H60.93 Unspecified otitis externa, bilateral; J45.909 Unspecified asthma, uncomplicated; F17.200 Nicotine dependence, unspecified, uncomplicated; Z91.030 Bee allergy status; Z91.041 Radiographic dye allergy status
CPT/HCPCS: 87116; 87430; 99283

== ENCOUNTER 2018-07-08 01:23 | Emergency (ER) | payer OTHER ==
[2018-07-08 01:32] VITALS: BP 122/82
[2018-07-08] MEDS ORDERED: NACL 0.9% 1000 ML 1,000 ML IV ONE ×2 (01:32→04:20)
[2018-07-08 02:15] LABS: Basophils % (Auto) 0.3 % (0.0-1.8); Eosinophils # (Auto) 0.3 K/mm3 (0.0-0.4); Eosinophils % (Auto) 4.2 % (0.0-4.3); Hematocrit 40.3 % (30.3-42.9); Hemoglobin 13.5 gm/dl (10.1-14.3); Lymphocytes # (Auto) 0.6 K/mm3 (1.2-5.4); Lymphocytes % (Auto) 8.9 % (13.4-35.0); Mean Corpuscular HGB Conc 34 % (30-34); Mean Corpuscular Volume 85 fl (79-97); Monocytes # (Auto) 0.5 K/mm3 (0.0-0.8); Monocytes % (Auto) 7.3 % (0.0-7.3); Platelet Count 243 K/mm3 (140-440); Red Blood Count 4.73 M/mm3 (3.65-5.03); Red Cell Distribution Width 15.2 % (13.2-15.2)
[2018-07-08 02:38] LABS: Alanine Aminotransferase 19 units/L (7-56); Albumin 3.6 g/dL (3.9-5); BUN/Creatinine Ratio 13; Blood Urea Nitrogen 8 mg/dL (7-17); Calcium 8.5 mg/dL (8.4-10.2); Hemolysis Index 11
[2018-07-08 02:47] LABS: Bilirubin,Urine NEG (Negative); Blood,Urine NEG (Negative); Color,Urine Yellow (Yellow); Mucus,Urine FEW /HPF; Protein,Urine <15 mg/dL mg/dL (Negative); Urobilinogen,Urine < 2.0 mg/dL (<2.0)
[2018-07-08] MEDS ORDERED: LEVSIN SL SL ONE (04:20)
[2018-07-08] MEDS ORDERED: ZOFRAN ODT PO ONE (04:20)
--- NOTE | 2018-07-08 04:28 | Emergency Department Report ---
ED General Adult HPI - General Chief complaint: Dizziness Stated complaint: ABDOMINAL PAIN,NAUSEA, DIZZINESS Time Seen by Provider: 07/08/18 04:19 Source: patient Mode of arrival: Ambulatory Limitations: No Limitations - History of Present Illness Initial comments: 22-year-old -[place] female presents to the emergency room complaining of epigastric pain. Patient states she donated plasma this a.m. and it was noted that patient's blood pressure was unusually low. Patient complains of feeling funny and was given a Sprite. Patient complained of a headache dizziness height and cold flashes and sore throat. She also complains of tightness of the chest with shortness of breath. -: This morning Location: head, abdomen Radiation: non-radiation Severity scale (0 -10): 10 Quality: sharp Consistency: intermittent Worsens with: none Associated Symptoms: shortness of breath Treatments Prior to Arrival: none - Related Data Previous Rx's Medication Instructions Recorded Last Taken Type Famotidine [Pepcid] 20 mg PO BID #20 tablet 12/10/15 Unknown Rx diphenhydrAMINE [Benadryl CAP] 25 mg PO Q6HR PRN #25 capsule 12/10/15 Unknown Rx Loratadine [Claritin] 10 mg PO DAILY #20 tablet 07/02/17 Unknown Rx ALBUTEROL NEB's [Proventil 0.083% 2.5 mg IH 4XD PRN #75 ml 07/04/17 Unknown Rx NEBS] Azithromycin [Zithromax] 250 mg PO DAILY #6 tablet 07/04/17 Unknown Rx Nebulizer [Compact Compressor 1 each MC DAILY #1 each 07/04/17 Unknown Rx Nebulizer] Prednisone [predniSONE 10 mg 10 mg PO .TAPER #1 tab.ds.pk 07/04/17 Unknown Rx (6-Day Pack, 21 Tabs)] guaiFENesin/CODEINE [Robitussin AC] 5 ml PO Q6HR PRN #120 ml 07/04/17 Unknown Rx HYDROcodone/APAP 7.5-325 [[place] 15 ml PO Q4HR PRN #150 oz 07/14/17 Unknown Rx 7.5-325 mg per 15 ML] Ondansetron [Zofran Odt] 4 mg PO TID PRN #10 tab.rapdis 07/14/17 Unknown Rx Benzonatate [Tessalon Perle] 100 mg PO TID PRN #30 capsule 08/13/17 Unknown Rx Cetirizine HCl [Zyrtec] 10 mg PO DAILY #30 tablet 08/13/17 Unknown Rx Cipro/Dexameth 0.3/0.1% [Ciprodex 4 drops OT BID #1 bottle 08/13/17 Unknown Rx OTIC] ALBUTEROL Inhaler (OR & NICU) 2 puff IH QID PRN #1 inhalation 01/22/18 Unknown Rx [ProAir HFA Inhaler] guaiFENesin/CODEINE [Robitussin AC] 5 ml PO Q6HR #120 oral.liqd 01/22/18 Unknown Rx predniSONE [Prednisone] 50 mg PO DAILY #5 tablet 01/22/18 Unknown Rx Hyoscyamine Subl [Levsin Sl 0.125 0.125 mg SL Q6HR PRN #12 tab 07/08/18 Unknown Rx TAB] Omeprazole 20 mg PO QDAY #30 tablet. 07/08/18 Unknown Rx Allergies Allergy/AdvReac Type Severity Reaction Status Date / Time bee venom protein (honey bee) Allergy Anaphylaxis Verified 01/01/17 14:07 iodine Allergy Rash Verified 06/02/16 16:47 ED Review of Systems ROS: Stated complaint: ABDOMINAL PAIN,NAUSEA, DIZZINESS Other details as noted in HPI Comment: All other systems reviewed and negative Constitutional: chills ENT: throat pain Respiratory: shortness of breath Gastrointestinal: abdominal pain, nausea Neurological: headache ED Past Medical Hx - Past Medical History Previous Medical History?: Yes Hx Asthma: Yes Additional medical history: Obesity - Surgical History Past Surgical History?: No - Social History Smoking Status: Never Smoker Substance Use Type: Marijuana - Medications Home Medications: Home Medications Medication Instructions Recorded Confirmed Last Taken Type Famotidine [Pepcid] 20 mg PO BID #20 tablet 12/10/15 Unknown Rx diphenhydrAMINE [Benadryl CAP] 25 mg PO Q6HR PRN #25 capsule 12/10/15 Unknown Rx Loratadine [Claritin] 10 mg PO DAILY #20 tablet 07/02/17 Unknown Rx ALBUTEROL NEB's [Proventil 0.083% 2.5 mg IH 4XD PRN #75 ml 07/04/17 Unknown Rx NEBS] Azithromycin [Zithromax] 250 mg PO DAILY #6 tablet 07/04/17 Unknown Rx Nebulizer [Compact Compressor 1 each MC DAILY #1 each 07/04/17 Unknown Rx Nebulizer] Prednisone [predniSONE 10 mg 10 mg PO .TAPER #1 tab.ds.pk 07/04/17 Unknown Rx (6-Day Pack, 21 Tabs)] guaiFENesin/CODEINE [Robitussin AC] 5 ml PO Q6HR PRN #120 ml 07/04/17 Unknown Rx HYDROcodone/APAP 7.5-325 [[place] 15 ml PO Q4HR PRN #150 oz 07/14/17 Unknown Rx 7.5-325 mg per 15 ML] Ondansetron [Zofran Odt] 4 mg PO TID PRN #10 tab.rapdis 07/14/17 Unknown Rx Benzonatate [Tessalon Perle] 100 mg PO TID PRN #30 capsule 08/13/17 Unknown Rx Cetirizine HCl [Zyrtec] 10 mg PO DAILY #30 tablet 08/13/17 Unknown Rx Cipro/Dexameth 0.3/0.1% [Ciprodex 4 drops OT BID #1 bottle 08/13/17 Unknown Rx OTIC] ALBUTEROL Inhaler (OR & NICU) 2 puff IH QID PRN #1 inhalation 01/22/18 Unknown Rx [ProAir HFA Inhaler] guaiFENesin/CODEINE [Robitussin AC] 5 ml PO Q6HR #120 oral.liqd 01/22/18 Unknown Rx predniSONE [Prednisone] 50 mg PO DAILY #5 tablet 01/22/18 Unknown Rx Hyoscyamine Subl [Levsin Sl 0.125 0.125 mg SL Q6HR PRN #12 tab 07/08/18 Unknown Rx TAB] Omeprazole 20 mg PO QDAY #30 tablet.dr 07/08/18 Unknown Rx ED Physical Exam - General Limitations: No Limitations General appearance: alert, in no apparent distress - Head Head exam: Present: atraumatic, normocephalic - Eye Eye exam: Present: normal appearance - ENT ENT exam: Present: mucous membranes moist - Neck Neck exam: Present: normal inspection - Respiratory Respiratory exam: Present: normal lung sounds bilaterally. Absent: respiratory distress - Cardiovascular Cardiovascular Exam: Present: regular rate, normal rhythm. Absent: systolic murmur, diastolic murmur, rubs, gallop - GI/Abdominal GI/Abdominal exam: Present: soft, tenderness (epigastric), normal bowel sounds - Extremities Exam Extremities exam: Present: normal inspection - Back Exam Back exam: Present: normal inspection, full ROM - Neurological Exam Neurological exam: Present: alert, oriented X3 - Psychiatric Psychiatric exam: Present: normal affect, normal mood - Skin Skin exam: Present: warm, dry, intact, normal color. Absent: rash ED Course Vital Signs 07/08/18 01:24 Temperature 99.5 F Pulse Rate 92 H Respiratory 18 Rate Blood Pressure 122/82 O2 Sat by Pulse 100 Oximetry - Reevaluation(s) Reevaluation #1: 07/08/18 05:51 Patient reports she feels better since having IV fluids and medication. Allergies discharge patient on Levsin and she is to follow-up with her primary care provider. ED Medical Decision Making - Lab Data Result diagrams: 07/08/18 02:07 07/08/18 02:07 Critical care attestation.: If time is entered above; I have spent that time in minutes in the direct care of this critically ill patient, excluding procedure time. ED Disposition Clinical Impression: Abdominal pain Qualifiers: Abdominal location: epigastric Qualified Code(s): R10.13 - Epigastric pain Disposition: DC-01 TO HOME OR SELFCARE Is pt being admited?: No Does the pt Need Aspirin: No Condition: Stable Instructions: Abdominal Pain (ED) Additional Instructions: Please take medication only as needed. Increase clear fluid intake by 3 L daily. Follow-up with her primary care provider if his symptoms persist or gets worse. Prescriptions: Hyoscyamine Subl [Levsin Sl 0.125 TAB] 0.125 mg SL Q6HR PRN #12 tab PRN Reason: Nausea Omeprazole 20 mg PO QDAY #30 tablet.dr Referrals: PARMJIT RIOS MD [Primary Care Provider] - 3-5 Days Forms: Work/School Release Form(ED)
== END 2018-07-08 06:10 | disposition home or self-care (01) ==
LOC: ED 01:23
DX: R10.13 Epigastric pain (principal); R51 Headache; R42 Dizziness and giddiness; R06.02 Shortness of breath; R07.89 Other chest pain; J45.909 Unspecified asthma, uncomplicated; F12.10 Cannabis abuse, uncomplicated; Z79.899 Other long term (current) drug therapy; Z91.018 Allergy to other foods; Z91.030 Bee allergy status
CPT/HCPCS: 36415; 80053; 81001; 83690; 84703; 85025; 93005; 93010; 96360; 99284; J7030; Q0162

== ENCOUNTER 2018-08-04 19:44 | Emergency (ER) | payer OTHER ==
[2018-08-04 19:58] VITALS: BP 115/76
[2018-08-04] MEDS ORDERED: DUONEB *Not for PRN Use IH ONE (20:01)
--- NOTE | 2018-08-04 20:01 | Emergency Department Report ---
Blank Doc - Documentation Documentation: 22 y o f presents to Ed cc of sob x 3 days admits dry coughing intermittent hx of asthma, no relief with inhaler CXR ACC eval VSS duoneb ordered
--- NOTE | 2018-08-04 22:18 | XRay Report ---
PROCEDURE: XR CHEST ROUTINE 2V TECHNIQUE: PA and lateral chest radiographs were obtained. HISTORY: cough/sob COMPARISONS: July 05, 2007. FINDINGS: Heart: Normal. Mediastinum/Vessels: Normal. Lungs/Pleural space: Normal. Bony thorax: No acute osseous abnormality. IMPRESSION: Normal examination. This document is electronically signed by Jose Juan Brown MD., Aug 04 2018 10:16:04 PM ET
[2018-08-04] MEDS ORDERED: DELTASONE PO ONE (22:40)
--- NOTE | 2018-08-04 22:43 | Emergency Department Report ---
Minor Respiratory - HPI Chief Complaint: Dyspnea/Respdistress Stated Complaint: ASTHMA Time Seen by Provider: 08/04/18 19:56 Duration: 3 Days Severity: mild Minor Respiratory: Yes Able to Tolerate Fluids, Yes Cough, No Rhinorrhea, No Sore Throat, No Ear Pain, No Sick Contacts, No Hemoptysis, No Chest Pain, No Shortness of Breath, No Fever Other History: This is a 22-year-old [place] female presents to the emergency room with shortness of breath for 2-3 days. Patient reported symptoms increased swelling work today causing hyperventilation. Patient states she used her inhaler which increased shortness of breath today while at work. She also took ibuprofen 4 days ago for chills. She denies chest pain, palpitations, diaphoresis, or fever. ED Review of Systems ROS: Stated complaint: ASTHMA Other details as noted in HPI Constitutional: chills. denies: fever ENT: denies: ear pain, throat pain, congestion Respiratory: cough, SOB with exertion. denies: shortness of breath, wheezing Cardiovascular: denies: chest pain, palpitations Gastrointestinal: denies: abdominal pain, nausea, diarrhea Musculoskeletal: denies: myalgia Skin: denies: rash, lesions Neurological: denies: headache, weakness, paresthesias Psychiatric: denies: anxiety, depression ED Past Medical Hx - Past Medical History Previous Medical History?: Yes Hx Asthma: Yes Additional medical history: Obesity - Surgical History Past Surgical History?: No - Social History Smoking Status: Former Smoker Substance Use Type: None - Medications Home Medications: Home Medications Medication Instructions Recorded Confirmed Last Taken Type Famotidine [Pepcid] 20 mg PO BID #20 tablet 12/10/15 Unknown Rx diphenhydrAMINE [Benadryl CAP] 25 mg PO Q6HR PRN #25 capsule 12/10/15 Unknown Rx Loratadine [Claritin] 10 mg PO DAILY #20 tablet 07/02/17 Unknown Rx ALBUTEROL NEB's [Proventil 0.083% 2.5 mg IH 4XD PRN #75 ml 07/04/17 Unknown Rx NEBS] Azithromycin [Zithromax] 250 mg PO DAILY #6 tablet 07/04/17 Unknown Rx Nebulizer [Compact Compressor 1 each MC DAILY #1 each 07/04/17 Unknown Rx Nebulizer] Prednisone [predniSONE 10 mg 10 mg PO .TAPER #1 tab.ds.pk 07/04/17 Unknown Rx (6-Day Pack, 21 Tabs)] guaiFENesin/CODEINE [Robitussin AC] 5 ml PO Q6HR PRN #120 ml 07/04/17 Unknown Rx HYDROcodone/APAP 7.5-325 [[place] 15 ml PO Q4HR PRN #150 oz 07/14/17 Unknown Rx 7.5-325 mg per 15 ML] Ondansetron [Zofran Odt] 4 mg PO TID PRN #10 tab.rapdis 07/14/17 Unknown Rx Benzonatate [Tessalon Perle] 100 mg PO TID PRN #30 capsule 08/13/17 Unknown Rx Cetirizine HCl [Zyrtec 10mg tab] 10 mg PO DAILY #30 tablet 08/13/17 Unknown Rx Cipro/Dexameth 0.3/0.1% [Ciprodex 4 drops OT BID #1 bottle 08/13/17 Unknown Rx OTIC] ALBUTEROL Inhaler (OR & NICU) 2 puff IH QID PRN #1 inhalation 01/22/18 Unknown Rx [ProAir HFA Inhaler] guaiFENesin/CODEINE [Robitussin AC] 5 ml PO Q6HR #120 oral.liqd 01/22/18 Unknown Rx predniSONE [Prednisone] 50 mg PO DAILY #5 tablet 01/22/18 Unknown Rx Hyoscyamine Subl [Levsin Sl 0.125 0.125 mg SL Q6HR PRN #12 tab 07/08/18 Unknown Rx TAB] Omeprazole 20 mg PO QDAY #30 tablet. 07/08/18 Unknown Rx ALBUTEROL Inhaler (OR & NICU) 2 puff IH QID PRN #1 inhalation 08/04/18 Unknown Rx [ProAir HFA Inhaler] Prednisone [predniSONE 10 mg 10 mg PO .TAPER #1 tab.ds.pk 08/04/18 Unknown Rx (6-Day Pack, 21 Tabs)] Minor Respiratory Exam - Exam General: Vital signs noted. No distress. Alert and acting appropriately. HEENT: Yes Moist Mucous Membranes, No Pharyngeal Erythema, No Pharyngeal Exudates, No Rhinorrhea, No Conjuctival Injection, No Frontal Tenderness, No Maxillary Tenderness Ear: Neither TM Bulge, Neither TM Erythema, Neither EAC Pain, Neither EAC Discharge Neck: Yes Supple, No Adenopathy Lungs: Yes Good Air Exchange, No Wheezes, No Ronchi, No Stridor, No Cough, No Labored Respirations, No Retractions, No Use of Accessory Muscles, No Other Abnormal Lung Sounds Heart: Yes Regular, No Murmur Abdomen: Yes Normal Bowel Sounds, No Tenderness, No Peritoneal Signs Skin: No Rash, No Edema Neurologic: Alert and oriented, no deficits. Musculoskeletal: Unremarkable. ED Course Vital Signs 08/04/18 08/04/18 08/04/18 19:54 20:14 20:24 Temperature 98.0 F Pulse Rate 83 Pulse Rate [ 78 85 Anterior Bilateral Throughout] Respiratory 22 Rate Respiratory 24 20 Rate [Anterior Bilateral Throughout] Blood Pressure 115/76 O2 Sat by Pulse 100 Oximetry ED Medical Decision Making - Radiology Data Radiology results: report reviewed PROCEDURE: XR CHEST ROUTINE 2V TECHNIQUE: PA and lateral chest radiographs were obtained. HISTORY: cough/sob COMPARISONS: July 05, 2007. FINDINGS: Heart: Normal. Mediastinum/Vessels: Normal. Lungs/Pleural space: Normal. Bony thorax: No acute osseous abnormality. IMPRESSION: Normal examination. - Medical Decision Making Patient examined by me and in no acute distress. History of Asthma. Increase use Inhaler over the past 3 days. Patient is using nebulizer treatments. Vitals stable. Given duoneb treatment once and prednisone 60 mg po once in ER. Asthma exacerbation, Start albuterol and prednisone taper. Discharged home stable. Return to work tomorrow. Critical care attestation.: If time is entered above; I have spent that time in minutes in the direct care of this critically ill patient, excluding procedure time. ED Disposition Clinical Impression: Cough in adult, Shortness of breath Asthma attack Qualifiers: Asthma severity: mild Asthma persistence: intermittent Qualified Code(s): J45.21 - Mild intermittent asthma with (acute) exacerbation Disposition: - TO HOME OR SELFCARE Is pt being admited?: No Does the pt Need Aspirin: No Condition: Stable Instructions: Asthma (ED) Additional Instructions: It is important to use inhaler or have active albuterol inhaler and avoiding asthma triggers. Complete full course of prednisone steroids as prescribed. Follow up with Primary Care Provider in 24-72 hours. Prescriptions: Prednisone [predniSONE 10 mg (6-Day Pack, 21 Tabs)] 10 mg PO .TAPER #1 tab.ds.pk ALBUTEROL Inhaler (OR & NICU) [ProAir HFA Inhaler] 2 puff IH QID PRN #1 inhalation PRN Reason: Shortness Of Breath Referrals: STANLEY SIDHU [Primary Care Provider] - 3-5 Days MARJ DICKSON MD [Staff Physician] - 3-5 Days Forms: Work/School Release Form(ED) Time of Disposition: 22:53
== END 2018-08-04 23:35 | disposition home or self-care (01) ==
LOC: ED 19:44
DX: J45.901 Unspecified asthma with (acute) exacerbation (principal); E66.9 Obesity, unspecified; Z68.36 Body mass index [BMI] 36.0-36.9, adult; Z87.891 Personal history of nicotine dependence; Z91.030 Bee allergy status; Z91.041 Radiographic dye allergy status
CPT/HCPCS: 71046; 94640; 99284; J7512

== ENCOUNTER 2018-10-07 20:19 | Emergency (ER) | payer OTHER ==
[2018-10-07 20:32] VITALS: BP 119/69
[2018-10-07] MEDS ORDERED: ATROVENT IH ONE (21:07)
[2018-10-07] MEDS ORDERED: DECADRON IM ONE (21:07)
[2018-10-07] MEDS ORDERED: PROVENTIL IH ONE (21:08)
--- NOTE | 2018-10-07 21:39 | Emergency Department Report ---
ED Asthma HPI - General Chief Complaint: Dyspnea/Respdistress Stated Complaint: MARTHA/ASTHMA Time Seen by Provider: 10/07/18 20:54 Source: patient Mode of arrival: Ambulatory Limitations: No Limitations - History of Present Illness Initial Comments: This is a 23-year-old female nontoxic, well nourished in appearance, no acute signs of distress presents to the ED with c/o of acute on chronic asthma exacerbation. Patient stated she is out of her albuterol inhaler. Patient denies any cough. Patient denies any sick contact. Patient denies any recent travels, long car, recent hospital stays. Patient denies any calf pain or calf tenderness. Patient denies any chest pain, short of breath, fever, chills, nausea, vomiting, hemoptysis, numbness, tingling, headache or stiff neck. Past medical history includes asthma. MD Complaint: "asthma attack", shortness of breath, wheezing -: This morning Asthma History: childhood onset Severity: mild Context: none known Associated Symptoms: none - Related Data Previous Rx's Medication Instructions Recorded Last Taken Type Famotidine [Pepcid] 20 mg PO BID #20 tablet 12/10/15 Unknown Rx diphenhydrAMINE [Benadryl CAP] 25 mg PO Q6HR PRN #25 capsule 12/10/15 Unknown Rx Loratadine [Claritin] 10 mg PO DAILY #20 tablet 07/02/17 Unknown Rx Azithromycin [Zithromax] 250 mg PO DAILY #6 tablet 07/04/17 Unknown Rx Nebulizer [Compact Compressor 1 each MC DAILY #1 each 07/04/17 Unknown Rx Nebulizer] Prednisone [predniSONE 10 mg 10 mg PO .TAPER #1 tab.ds.pk 07/04/17 Unknown Rx (6-Day Pack, 21 Tabs)] guaiFENesin/CODEINE [Robitussin AC] 5 ml PO Q6HR PRN #120 ml 07/04/17 Unknown Rx HYDROcodone/APAP 7.5-325 [[place] 15 ml PO Q4HR PRN #150 oz 07/14/17 Unknown Rx 7.5-325 mg per 15 ML] Ondansetron [Zofran Odt] 4 mg PO TID PRN #10 tab.rapdis 07/14/17 Unknown Rx Benzonatate [Tessalon Perle] 100 mg PO TID PRN #30 capsule 08/13/17 Unknown Rx Cetirizine HCl [Zyrtec 10mg tab] 10 mg PO DAILY #30 tablet 08/13/17 Unknown Rx Cipro/Dexameth 0.3/0.1% [Ciprodex 4 drops OT BID #1 bottle 08/13/17 Unknown Rx OTIC] ALBUTEROL Inhaler (OR & NICU) 2 puff IH QID PRN #1 inhalation 01/22/18 Unknown Rx [ProAir HFA Inhaler] guaiFENesin/CODEINE [Robitussin AC] 5 ml PO Q6HR #120 oral.liqd 01/22/18 Unknown Rx predniSONE [Prednisone] 50 mg PO DAILY #5 tablet 01/22/18 Unknown Rx Hyoscyamine Subl [Levsin Sl 0.125 0.125 mg SL Q6HR PRN #12 tab 07/08/18 Unknown Rx TAB] Omeprazole 20 mg PO QDAY #30 tablet. 07/08/18 Unknown Rx ALBUTEROL Inhaler (OR & NICU) 2 puff IH QID PRN #1 inhalation 08/04/18 Unknown Rx [ProAir HFA Inhaler] ALBUTEROL NEB's [Proventil 0.083% 2.5 mg IH 4XD PRN #75 ml 08/04/18 Unknown Rx NEBS] Prednisone [predniSONE 10 mg 10 mg PO .TAPER #1 tab.ds.pk 08/04/18 Unknown Rx (6-Day Pack, 21 Tabs)] ALBUTEROL Inhaler (OR & NICU) 2 puff IH QID PRN #1 inhalation 10/07/18 Unknown Rx [ProAir HFA Inhaler] ALBUTEROL NEB's [Proventil 0.083% 2.5 mg IH 4XD PRN #1 box 10/07/18 Unknown Rx NEBS] Prednisone [predniSONE 10 mg 10 mg PO .TAPER #1 tab.ds.pk 10/07/18 Unknown Rx (6-Day Pack, 21 Tabs)] Allergies Allergy/AdvReac Type Severity Reaction Status Date / Time bee venom protein (honey bee) Allergy Anaphylaxis Verified 01/01/17 14:07 iodine Allergy Rash Verified 06/02/16 16:47 ED Review of Systems ROS: Stated complaint: MARTHA/ASTHMA Other details as noted in HPI Constitutional: denies: chills, fever Eyes: denies: eye pain, eye discharge, vision change ENT: denies: ear pain, throat pain Respiratory: shortness of breath, wheezing. denies: cough Cardiovascular: denies: chest pain, palpitations Endocrine: no symptoms reported Gastrointestinal: denies: abdominal pain, nausea, diarrhea Genitourinary: denies: urgency, dysuria, discharge Musculoskeletal: denies: back pain, joint swelling, arthralgia Skin: denies: rash, lesions Neurological: denies: headache, weakness, paresthesias Psychiatric: denies: anxiety, depression Hematological/Lymphatic: denies: easy bleeding, easy bruising ED Past Medical Hx - Past Medical History Previous Medical History?: Yes Hx Asthma: Yes Additional medical history: Obesity - Surgical History Past Surgical History?: No - Social History Smoking Status: Never Smoker Substance Use Type: Marijuana - Medications Home Medications: Home Medications Medication Instructions Recorded Confirmed Last Taken Type Famotidine [Pepcid] 20 mg PO BID #20 tablet 12/10/15 Unknown Rx diphenhydrAMINE [Benadryl CAP] 25 mg PO Q6HR PRN #25 capsule 12/10/15 Unknown Rx Loratadine [Claritin] 10 mg PO DAILY #20 tablet 07/02/17 Unknown Rx Azithromycin [Zithromax] 250 mg PO DAILY #6 tablet 07/04/17 Unknown Rx Nebulizer [Compact Compressor 1 each MC DAILY #1 each 07/04/17 Unknown Rx Nebulizer] Prednisone [predniSONE 10 mg 10 mg PO .TAPER #1 tab.ds.pk 07/04/17 Unknown Rx (6-Day Pack, 21 Tabs)] guaiFENesin/CODEINE [Robitussin AC] 5 ml PO Q6HR PRN #120 ml 07/04/17 Unknown Rx HYDROcodone/APAP 7.5-325 [[place] 15 ml PO Q4HR PRN #150 oz 07/14/17 Unknown Rx 7.5-325 mg per 15 ML] Ondansetron [Zofran Odt] 4 mg PO TID PRN #10 tab.rapdis 07/14/17 Unknown Rx Benzonatate [Tessalon Perle] 100 mg PO TID PRN #30 capsule 08/13/17 Unknown Rx Cetirizine HCl [Zyrtec 10mg tab] 10 mg PO DAILY #30 tablet 08/13/17 Unknown Rx Cipro/Dexameth 0.3/0.1% [Ciprodex 4 drops OT BID #1 bottle 08/13/17 Unknown Rx OTIC] ALBUTEROL Inhaler (OR & NICU) 2 puff IH QID PRN #1 inhalation 01/22/18 Unknown Rx [ProAir HFA Inhaler] guaiFENesin/CODEINE [Robitussin AC] 5 ml PO Q6HR #120 oral.liqd 01/22/18 Unknown Rx predniSONE [Prednisone] 50 mg PO DAILY #5 tablet 01/22/18 Unknown Rx Hyoscyamine Subl [Levsin Sl 0.125 0.125 mg SL Q6HR PRN #12 tab 07/08/18 Unknown Rx TAB] Omeprazole 20 mg PO QDAY #30 tablet. 07/08/18 Unknown Rx ALBUTEROL Inhaler (OR & NICU) 2 puff IH QID PRN #1 inhalation 08/04/18 Unknown Rx [ProAir HFA Inhaler] ALBUTEROL NEB's [Proventil 0.083% 2.5 mg IH 4XD PRN #75 ml 08/04/18 Unknown Rx NEBS] Prednisone [predniSONE 10 mg 10 mg PO .TAPER #1 tab.ds.pk 08/04/18 Unknown Rx (6-Day Pack, 21 Tabs)] ALBUTEROL Inhaler (OR & NICU) 2 puff IH QID PRN #1 inhalation 10/07/18 Unknown Rx [ProAir HFA Inhaler] ALBUTEROL NEB's [Proventil 0.083% 2.5 mg IH 4XD PRN #1 box 10/07/18 Unknown Rx NEBS] Prednisone [predniSONE 10 mg 10 mg PO .TAPER #1 tab.ds.pk 10/07/18 Unknown Rx (6-Day Pack, 21 Tabs)] ED Physical Exam - General Limitations: No Limitations General appearance: alert, in no apparent distress - Head Head exam: Present: atraumatic, normocephalic - Neck Neck exam: Present: normal inspection, full ROM. Absent: tenderness, menin gismus, lymphadenopathy - Respiratory Respiratory exam: Present: normal lung sounds bilaterally, wheezes (bilateral upper and lower lobes). Absent: respiratory distress, rales, rhonchi, stridor, chest wall tenderness, accessory muscle use, decreased breath sounds, prolonged expiratory - Cardiovascular Cardiovascular Exam: Present: regular rate, normal rhythm, normal heart sounds. Absent: irregular rhythm, systolic murmur, diastolic murmur, rubs, gallop - Extremities Exam Extremities exam: Present: normal inspection, full ROM, normal capillary refill - Back Exam Back exam: Present: normal inspection, full ROM - Neurological Exam Neurological exam: Present: alert, oriented X3, normal gait - Psychiatric Psychiatric exam: Present: normal affect, normal mood - Skin Skin exam: Present: warm, dry, intact, normal color. Absent: rash ED Course Vital Signs 10/07/18 20:30 Temperature 98.1 F Pulse Rate 95 H Respiratory 20 Rate Blood Pressure 119/69 O2 Sat by Pulse 100 Oximetry - Reevaluation(s) Reevaluation #1: 10/07/18 21:38 Patient is speaking in full sentences with no signs of distress noted. ED Medical Decision Making - Medical Decision Making This is a 23-year-old female that presents with asthma exacerbation. Patient is stable and was examined by me. Chest x-ray has been obtained and dictated by the radiologist within normal limits. Patient is notified of the x-ray report with no questions noted by the patient. Patient did receive breathing treatment and steroids in the ED which patient the symptoms has resolved and subsided. Posttreatment and there is no wheezing upon auscultation. Patient is discharged with albuterol and prednisone. Patient also received a good Rx discount perception card at discharge. Patient was referred to Follow-up with a primary care doctor in 3-5 days or if symptoms worsen and continue return to emergency room as soon as possible. At time of discharge, the patient does not seem toxic or ill in appearance. No acute signs of distress noted. Patient agrees to discharge treatment plan of care. No further questions noted by the patient. Critical care attestation.: If time is entered above; I have spent that time in minutes in the direct care of this critically ill patient, excluding procedure time. ED Disposition Clinical Impression: Asthma exacerbation Qualifiers: Asthma severity: mild Asthma persistence: intermittent Qualified Code(s): J45.21 - Mild intermittent asthma with (acute) exacerbation Disposition: - TO HOME OR SELFCARE Is pt being admited?: No Does the pt Need Aspirin: No Condition: Stable Instructions: Asthma (ED) Additional Instructions: Follow-up with a primary care doctor in 3-5 days or if symptoms worsen and continue return to emergency room as soon as possible. Prescriptions: Prednisone [predniSONE 10 mg (6-Day Pack, 21 Tabs)] 10 mg PO .TAPER #1 tab.ds.pk ALBUTEROL Inhaler (OR & NICU) [ProAir HFA Inhaler] 2 puff IH QID PRN #1 inhalation PRN Reason: Shortness Of Breath ALBUTEROL NEB's [Proventil 0.083% NEBS] 2.5 mg IH 4XD PRN #1 box PRN Reason: Wheezing Referrals: PRIMARY CARE, [Referring] - 3-5 Days ATA CANNON MD [Staff Physician] - 3-5 Days [facility] [place]] - 3-5 Days [facility] [Outside] - 3-5 Days Forms: Work/School Release Form(ED)
--- NOTE | 2018-10-07 22:43 | XRay Report ---
CHEST 2 VIEWS INDICATION / CLINICAL INFORMATION: wheezing sob. COMPARISON: None available. FINDINGS: SUPPORT DEVICES: None. HEART / MEDIASTINUM: No significant abnormality. LUNGS / PLEURA: No significant pulmonary or pleural abnormality. No pneumothorax. ADDITIONAL FINDINGS: No significant additional findings. IMPRESSION: 1. No acute findings. Signer Name: Rambo Chahal MD Signed: 10/07/2018 10:39 PM Workstation Name: [id number]
== END 2018-10-07 23:08 | disposition home or self-care (01) ==
LOC: ED 20:19
DX: J45.21 Mild intermittent asthma with (acute) exacerbation (principal); F12.10 Cannabis abuse, uncomplicated; Z79.899 Other long term (current) drug therapy; Z91.030 Bee allergy status; Z91.09 Other allergy status, other than to drugs and biological substances
CPT/HCPCS: 71046; 94640; 96372; 99283; J1100

== ENCOUNTER 2019-04-05 20:27 | Emergency (ER) | payer SELFPAY ==
[2019-04-05 20:32] VITALS: BP 127/78
[2019-04-05] MEDS ORDERED: IBUPROFEN 800 MG TAB PO ONE (23:41)
[2019-04-05] MEDS ORDERED: BENZONATATE 100 MG CAP PO ONE (23:41)
--- NOTE | 2019-04-06 00:13 | XRay Report ---
CHEST PA AND LATERAL VIEWS INDICATION: cough. COMPARISON: 10/07/2018 FINDINGS: Support devices: None. Heart: Within normal limits. Lungs/Pleura: No acute pulmonary or pleural findings. IMPRESSION: 1. No acute findings. Signer Name: Yunier Mosquera MD Signed: 04/06/2019 12:08 AM Workstation Name: [id number]
--- NOTE | 2019-04-06 01:49 | Emergency Department Report ---
Upper Respiratory HPI - HPI Chief Complaint: Upper Respiratory Infection Stated Complaint: ASTHMA Time Seen by Provider: 04/05/19 23:33 Duration: 1 Day URI Symptoms: Rhinorrhea: Yes, Sore Throat: No, Ear Pain: No, Cough: Yes, Shortness of Breath: No, Sick Contacts: No, Unable to Take Fluids: No, Urine Output Abnormal: No, Listless Behavior: No Other History: This is a 23-year-old female nontoxic, well nourished in appearance, no acute signs of distress presents to the ED with c/o of productive cough, frontal sinus pain, rhinorrhea, nasal congestion x1 day. Patient describes productive cough as yellow mucus production. Patient denies any sick contacts. Patient denies any recent travels, long car, recent hospital stays. Patient denies any calf pain or calf tenderness. Patient denies any chest pain, short of breath, fever, chills, nausea, vomiting, hemoptysis, numbness, tingling, headache or stiff neck. Patient stated allergies to iodine with no significant past medical history. - Home Meds and Allergies Home Medications: Previous Rx's Medication Instructions Recorded Last Taken Type Famotidine [Pepcid] 20 mg PO BID #20 tablet 12/10/15 Unknown Rx diphenhydrAMINE [Benadryl CAP] 25 mg PO Q6HR PRN #25 capsule 12/10/15 Unknown Rx Loratadine (Nf) [Claritin] 10 mg PO DAILY #20 tablet 07/02/17 Unknown Rx Azithromycin [Zithromax] 250 mg PO DAILY #6 tablet 07/04/17 Unknown Rx Nebulizer [Compact Compressor 1 each MC DAILY #1 each 07/04/17 Unknown Rx Nebulizer] Prednisone [predniSONE 10 mg 10 mg PO .TAPER #1 tab.ds.pk 07/04/17 Unknown Rx (6-Day Pack, 21 Tabs)] guaiFENesin/CODEINE [Robitussin AC] 5 ml PO Q6HR PRN #120 ml 07/04/17 Unknown Rx HYDROcodone/APAP 7.5-325 [[place] 15 ml PO Q4HR PRN #150 oz 07/14/17 Unknown Rx 7.5-325 mg per 15 ML] Ondansetron [Zofran Odt] 4 mg PO TID PRN #10 tab.rapdis 07/14/17 Unknown Rx Benzonatate [Tessalon Perle] 100 mg PO TID PRN #30 capsule 08/13/17 Unknown Rx Cetirizine HCl [Zyrtec 10mg tab] 10 mg PO DAILY #30 tablet 08/13/17 Unknown Rx Cipro/Dexameth 0.3/0.1% [Ciprodex 4 drops OT BID #1 bottle 08/13/17 Unknown Rx OTIC] Albuterol INH(or & Nicu Only) 2 puff IH QID PRN #1 inhalation 01/22/18 Unknown Rx [ProAir HFA Inhaler] guaiFENesin/CODEINE [Robitussin AC] 5 ml PO Q6HR #120 oral.liqd 01/22/18 Unknown Rx predniSONE [Prednisone] 50 mg PO DAILY #5 tablet 01/22/18 Unknown Rx Hyoscyamine Subl [Levsin Sl 0.125 0.125 mg SL Q6HR PRN #12 tab 07/08/18 Unknown Rx TAB] Omeprazole 20 mg PO QDAY #30 tablet. 07/08/18 Unknown Rx ALBUTEROL NEB's [Proventil 0.083% 2.5 mg IH 4XD PRN #75 ml 08/04/18 Unknown Rx NEBS] Albuterol INH(or & Nicu Only) 2 puff IH QID PRN #1 inhalation 08/04/18 Unknown Rx [ProAir HFA Inhaler] Prednisone [predniSONE 10 mg 10 mg PO .TAPER #1 tab.ds.pk 08/04/18 Unknown Rx (6-Day Pack, 21 Tabs)] ALBUTEROL NEB's [Proventil 0.083% 2.5 mg IH 4XD PRN #1 box 10/07/18 Unknown Rx NEBS] Albuterol INH(or & Nicu Only) 2 puff IH QID PRN #1 inhalation 10/07/18 Unknown Rx [ProAir HFA Inhaler] Prednisone [predniSONE 10 mg 10 mg PO .TAPER #1 tab.ds.pk 10/07/18 Unknown Rx (6-Day Pack, 21 Tabs)] Amoxicillin/K Clav Tab [Augmentin 1 tab PO Q12HR #20 tab 04/06/19 Unknown Rx 875 mg] Benzonatate [Tessalon Perles] 100 mg PO Q8HR PRN #20 capsule 04/06/19 Unknown Rx Ibuprofen [Motrin] 600 mg PO Q8H PRN #20 tablet 04/06/19 Unknown Rx Allergies/Adverse Reactions: Allergies Allergy/AdvReac Type Severity Reaction Status Date / Time iodine Allergy Rash Verified 06/02/16 16:47 ED Review of Systems ROS: Stated complaint: ASTHMA Other details as noted in HPI Constitutional: denies: chills, fever Eyes: denies: eye pain, eye discharge, vision change ENT: congestion. denies: ear pain, throat pain Respiratory: cough. denies: shortness of breath, wheezing Cardiovascular: denies: chest pain, palpitations Endocrine: no symptoms reported Gastrointestinal: denies: abdominal pain, nausea, diarrhea Genitourinary: denies: urgency, dysuria, discharge Musculoskeletal: denies: back pain, joint swelling, arthralgia Skin: denies: rash, lesions Neurological: denies: headache, weakness, paresthesias Psychiatric: denies: anxiety, depression Hematological/Lymphatic: denies: easy bleeding, easy bruising ED Past Medical Hx - Past Medical History Hx Asthma: Yes Additional medical history: Obesity - Social History Smoking Status: Former Smoker Substance Use Type: None, Marijuana - Medications Home Medications: Home Medications Medication Instructions Recorded Confirmed Last Taken Type Famotidine [Pepcid] 20 mg PO BID #20 tablet 12/10/15 Unknown Rx diphenhydrAMINE [Benadryl CAP] 25 mg PO Q6HR PRN #25 capsule 12/10/15 Unknown Rx Loratadine (Nf) [Claritin] 10 mg PO DAILY #20 tablet 07/02/17 Unknown Rx Azithromycin [Zithromax] 250 mg PO DAILY #6 tablet 07/04/17 Unknown Rx Nebulizer [Compact Compressor 1 each MC DAILY #1 each 07/04/17 Unknown Rx Nebulizer] Prednisone [predniSONE 10 mg 10 mg PO .TAPER #1 tab.ds.pk 07/04/17 Unknown Rx (6-Day Pack, 21 Tabs)] guaiFENesin/CODEINE [Robitussin AC] 5 ml PO Q6HR PRN #120 ml 07/04/17 Unknown Rx HYDROcodone/APAP 7.5-325 [[place] 15 ml PO Q4HR PRN #150 oz 07/14/17 Unknown Rx 7.5-325 mg per 15 ML] Ondansetron [Zofran Odt] 4 mg PO TID PRN #10 tab.rapdis 07/14/17 Unknown Rx Benzonatate [Tessalon Perle] 100 mg PO TID PRN #30 capsule 08/13/17 Unknown Rx Cetirizine HCl [Zyrtec 10mg tab] 10 mg PO DAILY #30 tablet 08/13/17 Unknown Rx Cipro/Dexameth 0.3/0.1% [Ciprodex 4 drops OT BID #1 bottle 08/13/17 Unknown Rx OTIC] Albuterol INH(or & Nicu Only) 2 puff IH QID PRN #1 inhalation 01/22/18 Unknown Rx [ProAir HFA Inhaler] guaiFENesin/CODEINE [Robitussin AC] 5 ml PO Q6HR #120 oral.liqd 01/22/18 Unknown Rx predniSONE [Prednisone] 50 mg PO DAILY #5 tablet 01/22/18 Unknown Rx Hyoscyamine Subl [Levsin Sl 0.125 0.125 mg SL Q6HR PRN #12 tab 07/08/18 Unknown Rx TAB] Omeprazole 20 mg PO QDAY #30 tablet. 07/08/18 Unknown Rx ALBUTEROL NEB's [Proventil 0.083% 2.5 mg IH 4XD PRN #75 ml 08/04/18 Unknown Rx NEBS] Albuterol INH(or & Nicu Only) 2 puff IH QID PRN #1 inhalation 08/04/18 Unknown Rx [ProAir HFA Inhaler] Prednisone [predniSONE 10 mg 10 mg PO .TAPER #1 tab.ds.pk 08/04/18 Unknown Rx (6-Day Pack, 21 Tabs)] ALBUTEROL NEB's [Proventil 0.083% 2.5 mg IH 4XD PRN #1 box 10/07/18 Unknown Rx NEBS] Albuterol INH(or & Nicu Only) 2 puff IH QID PRN #1 inhalation 10/07/18 Unknown Rx [ProAir HFA Inhaler] Prednisone [predniSONE 10 mg 10 mg PO .TAPER #1 tab.ds.pk 10/07/18 Unknown Rx (6-Day Pack, 21 Tabs)] Amoxicillin/K Clav Tab [Augmentin 1 tab PO Q12HR #20 tab 04/06/19 Unknown Rx 875 mg] Benzonatate [Tessalon Perles] 100 mg PO Q8HR PRN #20 capsule 04/06/19 Unknown Rx Ibuprofen [Motrin] 600 mg PO Q8H PRN #20 tablet 04/06/19 Unknown Rx ED Bronchiolitis Physical Exam - Exam General: Vital signs noted. No distress. Alert and acting appropriately. Neurologic: Alert and oriented, no deficits. Musculoskeletal: Unremarkable. ED Bronchiolitis Tests - Testing Testing: CXR: Normal/Negative ED Physical Exam - General Limitations: No Limitations General appearance: alert, in no apparent distress - Head Head exam: Present: atraumatic, normocephalic - Eye Eye exam: Present: normal appearance - ENT ENT exam: Present: normal exam, normal orophraynx - Neck Neck exam: Present: normal inspection, full ROM. Absent: tenderness, meningismus, lymphadenopathy - Respiratory Respiratory exam: Present: normal lung sounds bilaterally. Absent: respiratory distress, wheezes, rales, rhonchi, stridor, chest wall tenderness, accessory muscle use, decreased breath sounds, prolonged expiratory - Cardiovascular Cardiovascular Exam: Present: regular rate, normal rhythm, normal heart sounds. Absent: irregular rhythm, systolic murmur, diastolic murmur, rubs, gallop - Extremities Exam Extremities exam: Present: normal inspection, full ROM - Back Exam Back exam: Present: normal inspection, full ROM. Absent: tenderness, CVA tenderness (R), CVA tenderness (L), muscle spasm, paraspinal tenderness, vertebral tenderness, rash noted - Neurological Exam Neurological exam: Present: alert, oriented X3, normal gait - Psychiatric Psychiatric exam: Present: normal affect, normal mood - Skin Skin exam: Present: warm, dry, intact, normal color. Absent: rash - Other Other exam information: Positive frontal sinus tenderness. ED Course Vital Signs 04/05/19 04/05/19 04/05/19 20:31 22:35 23:51 Temperature 99.6 F 99.6 F Pulse Rate 118 H 113 H Respiratory 20 18 18 Rate Blood Pressure 127/78 127/78 O2 Sat by Pulse 98 98 Oximetry 04/06/19 01:27 Temperature Pulse Rate 108 H Respiratory 22 Rate Blood Pressure O2 Sat by Pulse 98 Oximetry - Reevaluation(s) Reevaluation #1: 04/06/19 01:48 Patient is speaking in full sentences with no signs of distress noted. ED Medical Decision Making - Medical Decision Making This is a 23-year-old female that presents with bronchitis and sinusitis. Patient is stable and was examined by me. Chest x-ray has been obtained and dictated by radiologist with normal exam. Patient is notified of x-ray results with no questions noted. Patient be treated with Augmentin. Patient was instructed to increase hydration, rest and take Motrin for fever episodes. Patient received motrin and tesslone perrls in the ED. Vitals stable. Patient is nonfebrile and normal heart rate. Patient was instructed Follow-up with a primary care doctor in 3-5 days or if symptoms worsen and continue return to emergency room as soon as possible. At time time of discharge, the patient does not seem toxic or ill in appearance. No acute signs of distress noted. Patient agrees to discharge treatment plan of care. No further questions noted by the patient. Critical care attestation.: If time is entered above; I have spent that time in minutes in the direct care of this critically ill patient, excluding procedure time. ED Disposition Clinical Impression: Bronchitis Sinusitis Qualifiers: Sinusitis location: frontal Chronicity: acute Recurrence: non-recurrent Qualified Code(s): J01.10 - Acute frontal sinusitis, unspecified Disposition: DC-01 TO HOME OR SELFCARE Is pt being admited?: No Does the pt Need Aspirin: No Condition: Stable Instructions: Acute Bronchitis (ED) Additional Instructions: Follow-up with a primary care doctor in 3-5 days or if symptoms worsen and continue return to emergency room as soon as possible. Prescriptions: Amoxicillin/K Clav Tab [Augmentin 875 mg] 1 tab PO Q12HR #20 tab Ibuprofen [Motrin] 600 mg PO Q8H PRN #20 tablet PRN Reason: Pain Benzonatate [Tessalon Perles] 100 mg PO Q8HR PRN #20 capsule PRN Reason: Cough Referrals: PRIMARY CAREMD [Primary Care Provider] - 3-5 Days PARMJIT RIOS MD [Staff Physician] - 3-5 Days [facility] [Outside] - 3-5 Days Forms: Work/School Release Form(ED)
== END 2019-04-06 01:50 | disposition home or self-care (01) ==
LOC: ED 20:27
DX: J40 Bronchitis, not specified as acute or chronic (principal); J32.9 Chronic sinusitis, unspecified; F12.10 Cannabis abuse, uncomplicated; Z87.891 Personal history of nicotine dependence; Z91.041 Radiographic dye allergy status; Z79.899 Other long term (current) drug therapy
CPT/HCPCS: 71046

== ENCOUNTER 2019-06-01 18:27 | Emergency (ER) | payer SELFPAY ==
[2019-06-01 18:31] VITALS: BP 133/78
--- NOTE | 2019-06-01 19:01 | Emergency Department Report ---
Chief Complaint: Urogenital-Female Stated Complaint: STD Time Seen by Provider: 06/01/19 18:55 - HPI History of Present Illness: This is a 23-year-old female nontoxic, well in appearance with no signs of distress presents to the ED for STD check. Patient stated that her partner called and said has possible STD. Patient stated she is asymptotic. Denies any vaginal discharge, vaginal pain, or swelling. Patient denies any urinary symptoms. Patient denies any fever, chills, headache, nausea, vomiting, chest pain or shortness of breathe. denies any other symptoms or complaints. Denies any allergies or PMH. - Exam Vital Signs: Vital Signs 06/01/19 18:30 Temperature 98.5 F Pulse Rate 113 H Respiratory 20 Rate Blood Pressure 133/78 [Left] O2 Sat by Pulse 100 Oximetry Physical Exam: no pelvic pain. no urinary symptoms. no flak pain. normal physical exam. MSE screening note: Focused history and physical exam performed. Due to findings the following was ordered: ED Medical Decision Making - Medical Decision Making This is a 23-year-old female that presents with nonmedical emergency complaint. Patient is just requested for a STD test. Patient denies any symptoms. I gave patient many different referrals to follow-up with STD concerns. Patient was instructed to Follow-up with a primary care doctor in 3-5 days or if symptoms worsen and continue return to emergency room as soon as possible. At time of discharge, the patient does not seem toxic or ill in appearance. No acute signs of distress noted. Patient agrees to discharge treatment plan of care. No further questions noted by the patient. ED Disposition for MSE Clinical Impression: Possible exposure to STD Disposition: Z-07 MED SCREENING EXAM-LEFT Is pt being admited?: No Does the pt Need Aspirin: No Condition: Stable Instructions: Safe Sex (ED) Additional Instructions: Follow-up with a primary care doctor in 3-5 days or if symptoms worsen and continue return to emergency room as soon as possible. Referrals: PRIMARY MD JOCELYNE [Referring] - 3-5 Days PARMJIT RIOS MD [Staff Physician] - 3-5 Days [facility] [Provider Group] - 3-5 Days
== END 2019-06-01 18:58 | disposition left against medical advice (07) ==
LOC: ED 18:27
DX: Z11.3 Encounter for screening for infections with a predominantly sexual mode of transmission (principal)
CPT/HCPCS: 99281

== ENCOUNTER 2019-07-12 13:01 | Emergency (ER) | payer SELFPAY ==
[2019-07-12] MEDS ORDERED: ONDANSETRON 4 MG/2 ML INJ IV ONE (13:41)
[2019-07-12] MEDS ORDERED: SODIUM CHLORIDE 0.9% 1000 ML 1,000 ML IV ONE (13:41)
[2019-07-12] MEDS ORDERED: MORPHINE 4 MG/1 ML INJ IV ONE (13:41)
[2019-07-12 14:09] LABS: Basophils % (Auto) 0.3 % (0.0-1.8); Eosinophils # (Auto) 0.3 K/mm3 (0.0-0.4); Eosinophils % (Auto) 4.2 % (0.0-4.3); Hematocrit 42.7 % (30.3-42.9); Hemoglobin 14.1 gm/dl (10.1-14.3); Lymphocytes # (Auto) 1.3 K/mm3 (1.2-5.4); Lymphocytes % (Auto) 17.4 % (13.4-35.0); Mean Corpuscular HGB Conc 33 % (30-34); Mean Corpuscular Volume 88 fl (79-97); Monocytes # (Auto) 0.6 K/mm3 (0.0-0.8); Monocytes % (Auto) 7.7 % (0.0-7.3); Platelet Count 267 K/mm3 (140-440); Red Blood Count 4.87 M/mm3 (3.65-5.03); Red Cell Distribution Width 14.4 % (13.2-15.2)
[2019-07-12 14:33] LABS: Alanine Aminotransferase 12 units/L (7-56); Albumin 3.8 g/dL (3.9-5); BUN/Creatinine Ratio 11; Blood Urea Nitrogen 8 mg/dL (7-17); Hemolysis Index 11
[2019-07-12 15:02] LABS: Bilirubin,Urine NEG (Negative); Blood,Urine NEG (Negative); Color,Urine Yellow (Yellow); Mucus,Urine FEW /HPF; Protein,Urine <15 mg/dL mg/dL (Negative); Urobilinogen,Urine < 2.0 mg/dL (<2.0); WBC,Urine < 1.0 /HPF (0.0-6.0)
--- NOTE | 2019-07-12 15:16 | Emergency Department Report ---
ED Abdominal Pain HPI - General Chief Complaint: Abdominal Pain Stated Complaint: ABD PAIN, N/V Time Seen by Provider: 07/12/19 13:40 Source: patient Mode of arrival: Wheelchair Limitations: No Limitations - History of Present Illness Initial Comments: This is a 23-year-old female nontoxic, well nourished in appearance, no acute signs of distress presents to the ED with c/o of nausea and vomiting and abdominal pain 2 days. Patient describes vomiting as food content and yellow gastric acid. Patient describes abdominal pain as cramping and aching with level of 8/10 primarily in the upper abdominal area. Patient denies chest pain, short of breath, fever, hemoptysis, blood in stool, chills, headache, stiff neck, numbness or tingling. Patient denies any diarrhea or constipation. Denies any blood in stool. Patient denies any recent travels. Patient stated allergies to iodine but denies any allergies to IV dye. Patient denies any significant past medical history. MD Complaint: abdominal pain -: days(s) Location: LUQ, RUQ Radiation: none Migration to: no migration Severity: mild Severity scale (0 -10): 8 Quality: cramping, aching Consistency: constant Improves With: nothing Worsens With: nothing Associated Symptoms: nausea, vomiting. denies: diarrhea, fever, chills, constipation, dysuria, hematemesis, hematochezia, melena, hematuria, anorexia, syncope - Related Data Previous Rx's Medication Instructions Recorded Last Taken Type Famotidine [Pepcid] 20 mg PO BID #20 tablet 12/10/15 Unknown Rx diphenhydrAMINE [Benadryl CAP] 25 mg PO Q6HR PRN #25 capsule 12/10/15 Unknown Rx Loratadine (Nf) [Claritin] 10 mg PO DAILY #20 tablet 07/02/17 Unknown Rx Azithromycin [Zithromax] 250 mg PO DAILY #6 tablet 07/04/17 Unknown Rx Nebulizer [Compact Compressor 1 each MC DAILY #1 each 07/04/17 Unknown Rx Nebulizer] Prednisone [predniSONE 10 mg 10 mg PO .TAPER #1 tab.ds.pk 07/04/17 Unknown Rx (6-Day Pack, 21 Tabs)] guaiFENesin/CODEINE [Robitussin AC] 5 ml PO Q6HR PRN #120 ml 07/04/17 Unknown Rx HYDROcodone/APAP 7.5-325 [Thompson 15 ml PO Q4HR PRN #150 oz 07/14/17 Unknown Rx 7.5-325 mg per 15 ML] Ondansetron [Zofran Odt] 4 mg PO TID PRN #10 tab.rapdis 07/14/17 Unknown Rx Benzonatate [Tessalon Perle] 100 mg PO TID PRN #30 capsule 08/13/17 Unknown Rx Cetirizine HCl [Zyrtec 10mg tab] 10 mg PO DAILY #30 tablet 08/13/17 Unknown Rx Cipro/Dexameth 0.3/0.1% [Ciprodex 4 drops OT BID #1 bottle 08/13/17 Unknown Rx OTIC] Albuterol INH(or & Nicu Only) 2 puff IH QID PRN #1 inhalation 01/22/18 Unknown Rx [ProAir HFA Inhaler] guaiFENesin/CODEINE [Robitussin AC] 5 ml PO Q6HR #120 oral.liqd 01/22/18 Unknown Rx predniSONE [Prednisone] 50 mg PO DAILY #5 tablet 01/22/18 Unknown Rx Hyoscyamine Subl [Levsin Sl 0.125 0.125 mg SL Q6HR PRN #12 tab 07/08/18 Unknown Rx TAB] Omeprazole 20 mg PO QDAY #30 tablet. 07/08/18 Unknown Rx ALBUTEROL NEB's [Proventil 0.083% 2.5 mg IH 4XD PRN #75 ml 08/04/18 Unknown Rx NEBS] Albuterol INH(or & Nicu Only) 2 puff IH QID PRN #1 inhalation 08/04/18 Unknown Rx [ProAir HFA Inhaler] Prednisone [predniSONE 10 mg 10 mg PO .TAPER #1 tab.ds.pk 08/04/18 Unknown Rx (6-Day Pack, 21 Tabs)] ALBUTEROL NEB's [Proventil 0.083% 2.5 mg IH 4XD PRN #1 box 10/07/18 Unknown Rx NEBS] Albuterol INH(or & Nicu Only) 2 puff IH QID PRN #1 inhalation 10/07/18 Unknown Rx [ProAir HFA Inhaler] Prednisone [predniSONE 10 mg 10 mg PO .TAPER #1 tab.ds.pk 10/07/18 Unknown Rx (6-Day Pack, 21 Tabs)] Amoxicillin/K Clav Tab [Augmentin 1 tab PO Q12HR #20 tab 04/06/19 Unknown Rx 875 mg] Benzonatate [Tessalon Perles] 100 mg PO Q8HR PRN #20 capsule 04/06/19 Unknown Rx Ibuprofen [Motrin] 600 mg PO Q8H PRN #20 tablet 04/06/19 Unknown Rx Ondansetron [Zofran Odt] 4 mg PO Q8HR PRN #12 tab.rapdis 07/12/19 Unknown Rx Allergies Allergy/AdvReac Type Severity Reaction Status Date / Time iodine Allergy Rash Verified 06/02/16 16:47 ED Review of Systems ROS: Stated complaint: ABD PAIN, N/V Other details as noted in HPI Constitutional: denies: chills, fever Eyes: denies: eye pain, eye discharge, vision change ENT: denies: ear pain, throat pain Respiratory: denies: cough, shortness of breath, wheezing Cardiovascular: denies: chest pain, palpitations Endocrine: no symptoms reported Gastrointestinal: abdominal pain, nausea. denies: diarrhea, constipation, hematemesis, melena, hematochezia Genitourinary: denies: urgency, dysuria, discharge Musculoskeletal: denies: back pain, joint swelling, arthralgia Skin: denies: rash, lesions Neurological: denies: headache, weakness, paresthesias Psychiatric: denies: anxiety, depression Hematological/Lymphatic: denies: easy bleeding, easy bruising ED Past Medical Hx - Past Medical History Previous Medical History?: Yes Hx Asthma: Yes Additional medical history: Obesity - Social History Smoking Status: Current Every Day Smoker Substance Use Type: Marijuana - Medications Home Medications: Home Medications Medication Instructions Recorded Confirmed Last Taken Type Famotidine [Pepcid] 20 mg PO BID #20 tablet 12/10/15 Unknown Rx diphenhydrAMINE [Benadryl CAP] 25 mg PO Q6HR PRN #25 capsule 12/10/15 Unknown Rx Loratadine (Nf) [Claritin] 10 mg PO DAILY #20 tablet 07/02/17 Unknown Rx Azithromycin [Zithromax] 250 mg PO DAILY #6 tablet 07/04/17 Unknown Rx Nebulizer [Compact Compressor 1 each MC DAILY #1 each 07/04/17 Unknown Rx Nebulizer] Prednisone [predniSONE 10 mg 10 mg PO .TAPER #1 tab.ds.pk 07/04/17 Unknown Rx (6-Day Pack, 21 Tabs)] guaiFENesin/CODEINE [Robitussin AC] 5 ml PO Q6HR PRN #120 ml 07/04/17 Unknown Rx HYDROcodone/APAP 7.5-325 [Thompson 15 ml PO Q4HR PRN #150 oz 07/14/17 Unknown Rx 7.5-325 mg per 15 ML] Ondansetron [Zofran Odt] 4 mg PO TID PRN #10 tab.rapdis 07/14/17 Unknown Rx Benzonatate [Tessalon Perle] 100 mg PO TID PRN #30 capsule 08/13/17 Unknown Rx Cetirizine HCl [Zyrtec 10mg tab] 10 mg PO DAILY #30 tablet 08/13/17 Unknown Rx Cipro/Dexameth 0.3/0.1% [Ciprodex 4 drops OT BID #1 bottle 08/13/17 Unknown Rx OTIC] Albuterol INH(or & Nicu Only) 2 puff IH QID PRN #1 inhalation 01/22/18 Unknown Rx [ProAir HFA Inhaler] guaiFENesin/CODEINE [Robitussin AC] 5 ml PO Q6HR #120 oral.liqd 01/22/18 Unknown Rx predniSONE [Prednisone] 50 mg PO DAILY #5 tablet 01/22/18 Unknown Rx Hyoscyamine Subl [Levsin Sl 0.125 0.125 mg SL Q6HR PRN #12 tab 07/08/18 Unknown Rx TAB] Omeprazole 20 mg PO QDAY #30 tablet.dr 07/08/18 Unknown Rx ALBUTEROL NEB's [Proventil 0.083% 2.5 mg IH 4XD PRN #75 ml 08/04/18 Unknown Rx NEBS] Albuterol INH(or & Nicu Only) 2 puff IH QID PRN #1 inhalation 08/04/18 Unknown Rx [ProAir HFA Inhaler] Prednisone [predniSONE 10 mg 10 mg PO .TAPER #1 tab.ds.pk 08/04/18 Unknown Rx (6-Day Pack, 21 Tabs)] ALBUTEROL NEB's [Proventil 0.083% 2.5 mg IH 4XD PRN #1 box 10/07/18 Unknown Rx NEBS] Albuterol INH(or & Nicu Only) 2 puff IH QID PRN #1 inhalation 10/07/18 Unknown Rx [ProAir HFA Inhaler] Prednisone [predniSONE 10 mg 10 mg PO .TAPER #1 tab.ds.pk 10/07/18 Unknown Rx (6-Day Pack, 21 Tabs)] Amoxicillin/K Clav Tab [Augmentin 1 tab PO Q12HR #20 tab 04/06/19 Unknown Rx 875 mg] Benzonatate [Tessalon Perles] 100 mg PO Q8HR PRN #20 capsule 04/06/19 Unknown Rx Ibuprofen [Motrin] 600 mg PO Q8H PRN #20 tablet 04/06/19 Unknown Rx Ondansetron [Zofran Odt] 4 mg PO Q8HR PRN #12 tab.rapdis 07/12/19 Unknown Rx ED Physical Exam - General Limitations: No Limitations General appearance: alert, in no apparent distress - Head Head exam: Present: atraumatic, normocephalic - Eye Eye exam: Present: normal appearance - Neck Neck exam: Present: normal inspection, full ROM. Absent: tenderness, meningismus, lymphadenopathy - Respiratory Respiratory exam: Present: normal lung sounds bilaterally. Absent: respiratory distress, wheezes, rales, rhonchi, stridor, chest wall tenderness, accessory muscle use, decreased breath sounds, prolonged expiratory - Cardiovascular Cardiovascular Exam: Present: regular rate, normal rhythm, normal heart sounds. Absent: bradycardia, tachycardia, irregular rhythm, systolic murmur, diastolic murmur, rubs, gallop - GI/Abdominal GI/Abdominal exam: Present: soft, tenderness (Mayur upper abdomen), normal bowel sounds. Absent: distended, guarding, rebound, rigid, diminished bowel sounds - Extremities Exam Extremities exam: Present: normal inspection, full ROM - Back Exam Back exam: Present: normal inspection, full ROM. Absent: tenderness, CVA tenderness (R), CVA tenderness (L), muscle spasm, paraspinal tenderness, vertebral tenderness, rash noted - Neurological Exam Neurological exam: Present: alert, oriented X3, normal gait - Psychiatric Psychiatric exam: Present: normal affect, normal mood - Skin Skin exam: Present: warm, dry, intact, normal color. Absent: rash ED Course Vital Signs 07/12/19 07/12/19 07/12/19 13:25 14:13 17:18 Temperature 98.1 F Pulse Rate 68 68 Respiratory 20 18 16 Rate Blood Pressure 119/76 Blood Pressure 125/78 [Right] O2 Sat by Pulse 100 100 Oximetry - Reevaluation(s) Reevaluation #1: 07/12/19 15:15 Patient is speaking in full sentences with no signs of distress noted. ED Medical Decision Making - Lab Data Result diagrams: 07/12/19 13:47 07/12/19 13:47 - Medical Decision Making This is a 23-year-old female that presents with abdominal pain and n/v. Patient is stable and was examined by me. There is some upper abdominal tenderness. Negative signs of symptoms of appendicitis. Labs obtained. UA obtained. CT of abdomen obtained and dictated by the radiologist with no acute findings besides some pelvic fluid which can be related to ruptured ovarian cyst. Patient is notified of the report with no questions noted by the patient. Vital signs are stable prior to discharge. Patient received medical treatment in the ED which patient stated symptoms has resovled and subsided. Was instructed note to op erate any machinery due to possible drowsiness and stated someone will drive the patient home. A by mouth challenge has been obtained and patient tolerated well with no nausea vomiting. Patient was notified of strict precatuions of appendictis symptoms and to return to the ED if symptoms occurs as soon as possible. Patient was also instructed to Follow-up with a primary care and OBGYN doctor in 3-5 days or if symptoms worsen and continue return to emergency room as soon as possible. At time of discharge, the patient does not seem toxic or ill in appearance. No acute signs of distress noted. Patient agrees to discharge treatment plan of care. No further questions noted by the patient. Critical care attestation.: If time is entered above; I have spent that time in minutes in the direct care of this critically ill patient, excluding procedure time. ED Disposition Clinical Impression: Abdominal pain Qualifiers: Abdominal location: upper abdomen, unspecified Qualified Code(s): R10.10 - Upper abdominal pain, unspecified Nausea & vomiting Qualifiers: Vomiting type: unspecified Vomiting Intractability: non-intractable Qualified Code(s): R11.2 - Nausea with vomiting, unspecified Disposition: DC-01 TO HOME OR SELFCARE Is pt being admited?: No Does the pt Need Aspirin: No Condition: Stable Instructions: Abdominal Pain (ED), Acute Nausea and Vomiting (ED) Additional Instructions: Follow-up with a primary care and OBGYN doctor in 3-5 days or if symptoms worsen and continue return to emergency room as soon as possible. Prescriptions: Ondansetron [Zofran Odt] 4 mg PO Q8HR PRN #12 tab.rapdis PRN Reason: Nausea Referrals: SMITH CASANOVA MD [Primary Care Provider] - 3-5 Days PARMJIT RIOS MD [Staff Physician] - 3-5 Days [facility] [Provider Group] - 3-5 Days [facility] [Provider Group] - 3-5 Days Forms: Work/School Release Form(ED)
--- NOTE | 2019-07-12 16:34 | Cat Scan Report ---
CT abdomen pelvis w con INDICATION: abd pain n/v. TECHNIQUE: All CT scans at this location are performed using CT dose reduction for ALARA by means of automated e xposure control. COMPARISON: None available. FINDINGS: Lung bases are clear. Liver, gallbladder, spleen, pancreas, kidneys and adrenals are negative. Abdomi nal aorta is normal in size. No adenopathy. Pelvis Normal appendix. No significant bowel abnormalities. Small amount of fluid in the cul-de-sac could we ll be physiologic but is slightly more than usually seen. No obvious abnormalities of the uterus or o varies. No skeletal lesions. IMPRESSION: 1. Free fluid in the cul-de-sac is slightly greater than usually seen but is still probably physiolog ic. If clinically indicated, pelvic ultrasound may be helpful. 2. Otherwise negative study. Signer Name: Audi Barlow MD Signed: 07/12/2019 4:29 PM Workstation Name: [id number]
[2019-07-12 17:35] VITALS: BP 121/74
== END 2019-07-12 17:34 | disposition home or self-care (01) ==
LOC: ED 13:01
DX: R10.10 Upper abdominal pain, unspecified (principal); R11.2 Nausea with vomiting, unspecified; J45.909 Unspecified asthma, uncomplicated; E66.9 Obesity, unspecified; F17.200 Nicotine dependence, unspecified, uncomplicated; F12.90 Cannabis use, unspecified, uncomplicated; Z91.041 Radiographic dye allergy status; Z79.899 Other long term (current) drug therapy; Z68.37 Body mass index [BMI] 37.0-37.9, adult
CPT/HCPCS: 36415; 74177; 80053; 81001; 83690; 84703; 85025; 96361; 96374; 96375; 99284; J2270; J2405; J7030; Q9967

== ENCOUNTER 2020-08-11 23:20 | Emergency (ER) | payer MEDICAID ==
[2020-08-12] MEDS ORDERED: IBUPROFEN 800 MG TAB PO ONE (00:22)
--- NOTE | 2020-08-12 01:35 | Emergency Department Report ---
ED ENT HPI - General Chief complaint: Dental/Oral Stated complaint: TOOTHACHE;EAR PAIN Time Seen by Provider: 08/12/20 00:10 Source: patient Mode of arrival: Ambulatory Limitations: No Limitations - History of Present Illness Initial comments: 24-year-old male female [facility] emerge department complaining of pain to the left upper and lower molar region is worse with palpation chewing and eating. Reports having a dental fracture some weeks ago resulting in pain and irritation. She reports no odynophagia or dysphagia no foul taste or no no bleeding. MD complaint: tooth pain -: Gradual Location: tooth # 1 - Dental pain with gingival erythema Severity: mild Quality: dull Consistency: constant Improves with: none Worsens with: none Context- Dental: history of dental caries Associated Symptoms: gum swelling, toothache. denies: cough, pain with swallowing, sore throat, tinnitus, discharge from ear, rhinorrhea - Related Data Previous Rx's Medication Instructions Recorded Last Taken Type Famotidine [Pepcid] 20 mg PO BID #20 tablet 12/10/15 Unknown Rx diphenhydrAMINE [Benadryl CAP] 25 mg PO Q6HR PRN #25 capsule 12/10/15 Unknown Rx Loratadine (Nf) [Claritin] 10 mg PO DAILY #20 tablet 07/02/17 Unknown Rx Azithromycin [Zithromax] 250 mg PO DAILY #6 tablet 07/04/17 Unknown Rx Nebulizer [Compact Compressor 1 each MC DAILY #1 each 07/04/17 Unknown Rx Nebulizer] Prednisone [predniSONE 10 mg 10 mg PO .TAPER #1 tab.ds.pk 07/04/17 Unknown Rx (6-Day Pack, 21 Tabs)] guaiFENesin/CODEINE [Robitussin AC] 5 ml PO Q6HR PRN #120 ml 07/04/17 Unknown Rx HYDROcodone/Acetaminop 7.5-325 15 ml PO Q4HR PRN #150 oz 07/14/17 Unknown Rx [[place] 7.5-325 mg per 15 ML] Ondansetron [Zofran Odt] 4 mg PO TID PRN #10 tab.rapdis 07/14/17 Unknown Rx Benzonatate [Tessalon Perle] 100 mg PO TID PRN #30 capsule 08/13/17 Unknown Rx Cetirizine HCl [Zyrtec 10mg tab] 10 mg PO DAILY #30 tablet 08/13/17 Unknown Rx Cipro/Dexameth 0.3/0.1% [Ciprodex 4 drops OT BID #1 bottle 08/13/17 Unknown Rx OTIC] Albuterol Mdi (or & Nicu Only) 2 puff IH QID PRN #1 inhalation 01/22/18 Unknown Rx [ProAir HFA Inhaler] guaiFENesin/CODEINE [Robitussin AC] 5 ml PO Q6HR #120 oral.liqd 01/22/18 Unknown Rx predniSONE [Prednisone] 50 mg PO DAILY #5 tablet 01/22/18 Unknown Rx Hyoscyamine Subl [Levsin Sl 0.125 0.125 mg SL Q6HR PRN #12 tab 07/08/18 Unknown Rx TAB] Omeprazole 20 mg PO QDAY #30 tablet. 07/08/18 Unknown Rx ALBUTEROL NEB's [Proventil 0.083% 2.5 mg IH 4XD PRN #75 ml 08/04/18 Unknown Rx NEBS] Albuterol Mdi (or & Nicu Only) 2 puff IH QID PRN #1 inhalation 08/04/18 Unknown Rx [ProAir HFA Inhaler] Prednisone [predniSONE 10 mg 10 mg PO .TAPER #1 tab.ds.pk 08/04/18 Unknown Rx (6-Day Pack, 21 Tabs)] ALBUTEROL NEB's [Proventil 0.083% 2.5 mg IH 4XD PRN #1 box 10/07/18 Unknown Rx NEBS] Albuterol Mdi (or & Nicu Only) 2 puff IH QID PRN #1 inhalation 10/07/18 Unknown Rx [ProAir HFA Inhaler] Prednisone [predniSONE 10 mg 10 mg PO .TAPER #1 tab.ds.pk 10/07/18 Unknown Rx (6-Day Pack, 21 Tabs)] Amoxicillin/K Clav Tab [Augmentin 1 tab PO Q12HR #20 tab 04/06/19 Unknown Rx 875 mg] Benzonatate [Tessalon Perles] 100 mg PO Q8HR PRN #20 capsule 04/06/19 Unknown Rx Ibuprofen [Motrin] 600 mg PO Q8H PRN #20 tablet 04/06/19 Unknown Rx Ondansetron [Zofran Odt] 4 mg PO Q8HR PRN #12 tab.rapdis 07/12/19 Unknown Rx Amoxicillin [Amoxicillin TAB] 875 mg PO BID #20 tablet 08/12/20 Unknown Rx Chlorhexidine Mouthwash [Peridex] 15 ml MM BID #1 bottle 08/12/20 Unknown Rx Ketorolac [Toradol] 10 mg PO Q6H PRN #15 tablet 08/12/20 Unknown Rx Lidocaine Viscous 2% 5 ml MM Q3H PRN #120 udc 08/12/20 Unknown Rx Allergies Allergy/AdvReac Type Severity Reaction Status Date / Time iodine Allergy Rash Verified 06/02/16 16:47 ED Dental HPI - General Chief complaint: Dental/Oral Stated complaint: TOOTHACHE;EAR PAIN Time Seen by Provider: 08/12/20 00:10 Source: patient Mode of arrival: Ambulatory Limitations: No Limitations - Related Data Previous Rx's Medication Instructions Recorded Last Taken Type Famotidine [Pepcid] 20 mg PO BID #20 tablet 12/10/15 Unknown Rx diphenhydrAMINE [Benadryl CAP] 25 mg PO Q6HR PRN #25 capsule 12/10/15 Unknown Rx Loratadine (Nf) [Claritin] 10 mg PO DAILY #20 tablet 07/02/17 Unknown Rx Azithromycin [Zithromax] 250 mg PO DAILY #6 tablet 07/04/17 Unknown Rx Nebulizer [Compact Compressor 1 each MC DAILY #1 each 07/04/17 Unknown Rx Nebulizer] Prednisone [predniSONE 10 mg 10 mg PO .TAPER #1 tab.ds.pk 07/04/17 Unknown Rx (6-Day Pack, 21 Tabs)] guaiFENesin/CODEINE [Robitussin AC] 5 ml PO Q6HR PRN #120 ml 07/04/17 Unknown Rx HYDROcodone/Acetaminop 7.5-325 15 ml PO Q4HR PRN #150 oz 07/14/17 Unknown Rx [[place] 7.5-325 mg per 15 ML] Ondansetron [Zofran Odt] 4 mg PO TID PRN #10 tab.rapdis 07/14/17 Unknown Rx Benzonatate [Tessalon Perle] 100 mg PO TID PRN #30 capsule 08/13/17 Unknown Rx Cetirizine HCl [Zyrtec 10mg tab] 10 mg PO DAILY #30 tablet 08/13/17 Unknown Rx Cipro/Dexameth 0.3/0.1% [Ciprodex 4 drops OT BID #1 bottle 08/13/17 Unknown Rx OTIC] Albuterol Mdi (or & Nicu Only) 2 puff IH QID PRN #1 inhalation 01/22/18 Unknown Rx [ProAir HFA Inhaler] guaiFENesin/CODEINE [Robitussin AC] 5 ml PO Q6HR #120 oral.liqd 01/22/18 Unknown Rx predniSONE [Prednisone] 50 mg PO DAILY #5 tablet 01/22/18 Unknown Rx Hyoscyamine Subl [Levsin Sl 0.125 0.125 mg SL Q6HR PRN #12 tab 07/08/18 Unknown Rx TAB] Omeprazole 20 mg PO QDAY #30 tablet. 07/08/18 Unknown Rx ALBUTEROL NEB's [Proventil 0.083% 2.5 mg IH 4XD PRN #75 ml 08/04/18 Unknown Rx NEBS] Albuterol Mdi (or & Nicu Only) 2 puff IH QID PRN #1 inhalation 08/04/18 Unknown Rx [ProAir HFA Inhaler] Prednisone [predniSONE 10 mg 10 mg PO .TAPER #1 tab.ds.pk 08/04/18 Unknown Rx (6-Day Pack, 21 Tabs)] ALBUTEROL NEB's [Proventil 0.083% 2.5 mg IH 4XD PRN #1 box 10/07/18 Unknown Rx NEBS] Albuterol Mdi (or & Nicu Only) 2 puff IH QID PRN #1 inhalation 10/07/18 Unknown Rx [ProAir HFA Inhaler] Prednisone [predniSONE 10 mg 10 mg PO .TAPER #1 tab.ds.pk 10/07/18 Unknown Rx (6-Day Pack, 21 Tabs)] Amoxicillin/K Clav Tab [Augmentin 1 tab PO Q12HR #20 tab 04/06/19 Unknown Rx 875 mg] Benzonatate [Tessalon Perles] 100 mg PO Q8HR PRN #20 capsule 04/06/19 Unknown Rx Ibuprofen [Motrin] 600 mg PO Q8H PRN #20 tablet 04/06/19 Unknown Rx Ondansetron [Zofran Odt] 4 mg PO Q8HR PRN #12 tab.rapdis 07/12/19 Unknown Rx Amoxicillin [Amoxicillin TAB] 875 mg PO BID #20 tablet 08/12/20 Unknown Rx Chlorhexidine Mouthwash [Peridex] 15 ml MM BID #1 bottle 08/12/20 Unknown Rx Ketorolac [Toradol] 10 mg PO Q6H PRN #15 tablet 08/12/20 Unknown Rx Lidocaine Viscous 2% 5 ml MM Q3H PRN #120 udc 08/12/20 Unknown Rx Allergies Allergy/AdvReac Type Severity Reaction Status Date / Time iodine Allergy Rash Verified 06/02/16 16:47 ED Review of Systems ROS: Stated complaint: TOOTHACHE;EAR PAIN Other details as noted in HPI Comment: All other systems reviewed and negative ED Past Medical Hx - Past Medical History Previous Medical History?: Yes Hx Asthma: Yes Additional medical history: Obesity - Surgical History Past Surgical History?: No - Social History Smoking Status: Never Smoker Substance Use Type: Marijuana - Medications Home Medications: Home Medications Medication Instructions Recorded Confirmed Last Taken Type Famotidine [Pepcid] 20 mg PO BID #20 tablet 12/10/15 Unknown Rx diphenhydrAMINE [Benadryl CAP] 25 mg PO Q6HR PRN #25 capsule 12/10/15 Unknown Rx Loratadine (Nf) [Claritin] 10 mg PO DAILY #20 tablet 07/02/17 Unknown Rx Azithromycin [Zithromax] 250 mg PO DAILY #6 tablet 07/04/17 Unknown Rx Nebulizer [Compact Compressor 1 each MC DAILY #1 each 07/04/17 Unknown Rx Nebulizer] Prednisone [predniSONE 10 mg 10 mg PO .TAPER #1 tab.ds.pk 07/04/17 Unknown Rx (6-Day Pack, 21 Tabs)] guaiFENesin/CODEINE [Robitussin AC] 5 ml PO Q6HR PRN #120 ml 07/04/17 Unknown Rx HYDROcodone/Acetaminop 7.5-325 15 ml PO Q4HR PRN #150 oz 07/14/17 Unknown Rx [[place] 7.5-325 mg per 15 ML] Ondansetron [Zofran Odt] 4 mg PO TID PRN #10 tab.rapdis 07/14/17 Unknown Rx Benzonatate [Tessalon Perle] 100 mg PO TID PRN #30 capsule 08/13/17 Unknown Rx Cetirizine HCl [Zyrtec 10mg tab] 10 mg PO DAILY #30 tablet 08/13/17 Unknown Rx Cipro/Dexameth 0.3/0.1% [Ciprodex 4 drops OT BID #1 bottle 08/13/17 Unknown Rx OTIC] Albuterol Mdi (or & Nicu Only) 2 puff IH QID PRN #1 inhalation 01/22/18 Unknown Rx [ProAir HFA Inhaler] guaiFENesin/CODEINE [Robitussin AC] 5 ml PO Q6HR #120 oral.liqd 01/22/18 Unknown Rx predniSONE [Prednisone] 50 mg PO DAILY #5 tablet 01/22/18 Unknown Rx Hyoscyamine Subl [Levsin Sl 0.125 0.125 mg SL Q6HR PRN #12 tab 07/08/18 Unknown Rx TAB] Omeprazole 20 mg PO QDAY #30 tablet.dr 07/08/18 Unknown Rx ALBUTEROL NEB's [Proventil 0.083% 2.5 mg IH 4XD PRN #75 ml 08/04/18 Unknown Rx NEBS] Albuterol Mdi (or & Nicu Only) 2 puff IH QID PRN #1 inhalation 08/04/18 Unknown Rx [ProAir HFA Inhaler] Prednisone [predniSONE 10 mg 10 mg PO .TAPER #1 tab.ds.pk 08/04/18 Unknown Rx (6-Day Pack, 21 Tabs)] ALBUTEROL NEB's [Proventil 0.083% 2.5 mg IH 4XD PRN #1 box 10/07/18 Unknown Rx NEBS] Albuterol Mdi (or & Nicu Only) 2 puff IH QID PRN #1 inhalation 10/07/18 Unknown Rx [ProAir HFA Inhaler] Prednisone [predniSONE 10 mg 10 mg PO .TAPER #1 tab.ds.pk 10/07/18 Unknown Rx (6-Day Pack, 21 Tabs)] Amoxicillin/K Clav Tab [Augmentin 1 tab PO Q12HR #20 tab 04/06/19 Unknown Rx 875 mg] Benzonatate [Tessalon Perles] 100 mg PO Q8HR PRN #20 capsule 04/06/19 Unknown Rx Ibuprofen [Motrin] 600 mg PO Q8H PRN #20 tablet 04/06/19 Unknown Rx Ondansetron [Zofran Odt] 4 mg PO Q8HR PRN #12 tab.rapdis 07/12/19 Unknown Rx Amoxicillin [Amoxicillin TAB] 875 mg PO BID #20 tablet 08/12/20 Unknown Rx Chlorhexidine Mouthwash [Peridex] 15 ml MM BID #1 bottle 08/12/20 Unknown Rx Ketorolac [Toradol] 10 mg PO Q6H PRN #15 tablet 08/12/20 Unknown Rx Lidocaine Viscous 2% 5 ml MM Q3H PRN #120 udc 08/12/20 Unknown Rx ED Physical Exam - General Limitations: No Limitations - Head Head exam: Present: atraumatic - Eye Eye exam: Present: normal appearance, PERRL, EOMI Pupils: Present: normal accommodation - ENT ENT exam: Present: normal exam, normal orophraynx, TM's normal bilaterally - Neck Neck exam: Present: normal inspection, full ROM - Respiratory Respiratory exam: Present: normal lung sounds bilaterally, chest wall tenderness - Extremities Exam Extremities exam: Present: normal inspection - Back Exam Back exam: Present: normal inspection. Absent: CVA tenderness (R), CVA tenderness (L) - Neurological Exam Neurological exam: Present: CN II-XII intact - Skin Skin exam: Present: intact, normal color. Absent: diaphoretic, erythema, urticaria ED Course Vital Signs 08/11/20 08/12/20 23:31 00:25 Temperature 98.6 F Pulse Rate 91 H Respiratory 18 19 Rate Blood Pressure 129/83 O2 Sat by Pulse 97 Oximetry Critical care attestation.: If time is entered above; I have spent that time in minutes in the direct care of this critically ill patient, excluding procedure time. ED Disposition Clinical Impression: Dentalgia, Dental caries Disposition: TO HOME OR SELFCARE Is pt being admited?: No Does the pt Need Aspirin: No Condition: Stable Instructions: Diet and Dental Disease, Tooth Injuries, [id number], Preventive Dental Care, Adult, Acute Pain, Adult Prescriptions: Amoxicillin [Amoxicillin TAB] 875 mg PO BID #20 tablet Lidocaine Viscous 2% 5 ml MM Q3H PRN #120 udc PRN Reason: Pain, Moderate (4-6) Chlorhexidine Mouthwash [Peridex] 15 ml MM BID #1 bottle Ketorolac [Toradol] 10 mg PO Q6H PRN #15 tablet PRN Reason: Pain Referrals: STANLEY JASON MD [Primary Care Provider] - 3-5 Days
[2020-08-12] MEDS ORDERED: HYDROcodone/ACETAMINOPHEN 5-325 MG TAB PO STA (01:49)
[2020-08-12 02:46] VITALS: BP 112/72
== END 2020-08-12 02:48 | disposition home or self-care (01) ==
LOC: ED 23:20
DX: K08.89 Other specified disorders of teeth and supporting structures (principal); K02.9 Dental caries, unspecified; J45.909 Unspecified asthma, uncomplicated; E66.9 Obesity, unspecified; F12.90 Cannabis use, unspecified, uncomplicated; Z68.42 Body mass index [BMI] 45.0-49.9, adult; Z79.899 Other long term (current) drug therapy; Z91.041 Radiographic dye allergy status
CPT/HCPCS: 99282

== ENCOUNTER 2020-08-17 00:19 | Emergency (ER) | payer MEDICAID ==
[2020-08-17 00:30] VITALS: BP 122/82
[2020-08-17] MEDS ORDERED: oxyCODONE /ACETAMINOPHEN 5-325MG TAB PO ONE (01:27)
[2020-08-17] MEDS ORDERED: LIDOCAINE VISCOUS 2% 15 ML ORAL LIQD PO ONE (01:38)
--- NOTE | 2020-08-17 01:38 | Emergency Department Report ---
ED ENT HPI - General Chief complaint: Dental/Oral Stated complaint: TOOTHACHE Time Seen by Provider: 08/17/20 01:22 Source: patient Mode of arrival: Ambulatory Limitations: No Limitations - History of Present Illness MD complaint: tooth pain -: Gradual Location: tooth # Severity: mild, moderate Quality: aching, dull Consistency: constant Improves with: none Worsens with: eating, movement Context- Dental: history of dental caries, poor dental care Associated Symptoms: toothache - Related Data Previous Rx's Medication Instructions Recorded Last Taken Type Famotidine [Pepcid] 20 mg PO BID #20 tablet 12/10/15 Unknown Rx diphenhydrAMINE [Benadryl CAP] 25 mg PO Q6HR PRN #25 capsule 12/10/15 Unknown Rx Loratadine (Nf) [Claritin] 10 mg PO DAILY #20 tablet 07/02/17 Unknown Rx Azithromycin [Zithromax] 250 mg PO DAILY #6 tablet 07/04/17 Unknown Rx Nebulizer [Compact Compressor 1 each MC DAILY #1 each 07/04/17 Unknown Rx Nebulizer] Prednisone [predniSONE 10 mg 10 mg PO .TAPER #1 tab.ds.pk 07/04/17 Unknown Rx (6-Day Pack, 21 Tabs)] guaiFENesin/CODEINE [Robitussin AC] 5 ml PO Q6HR PRN #120 ml 07/04/17 Unknown Rx HYDROcodone/Acetaminop 7.5-325 15 ml PO Q4HR PRN #150 oz 07/14/17 Unknown Rx [[place] 7.5-325 mg per 15 ML] Ondansetron [Zofran Odt] 4 mg PO TID PRN #10 tab.rapdis 07/14/17 Unknown Rx Benzonatate [Tessalon Perle] 100 mg PO TID PRN #30 capsule 08/13/17 Unknown Rx Cetirizine HCl [Zyrtec 10mg tab] 10 mg PO DAILY #30 tablet 08/13/17 Unknown Rx Cipro/Dexameth 0.3/0.1% [Ciprodex 4 drops OT BID #1 bottle 08/13/17 Unknown Rx OTIC] Albuterol Mdi (or & Nicu Only) 2 puff IH QID PRN #1 inhalation 01/22/18 Unknown Rx [ProAir HFA Inhaler] guaiFENesin/CODEINE [Robitussin AC] 5 ml PO Q6HR #120 oral.liqd 01/22/18 Unknown Rx predniSONE [Prednisone] 50 mg PO DAILY #5 tablet 01/22/18 Unknown Rx Hyoscyamine Subl [Levsin Sl 0.125 0.125 mg SL Q6HR PRN #12 tab 07/08/18 Unknown Rx TAB] Omeprazole 20 mg PO QDAY #30 tablet. 07/08/18 Unknown Rx ALBUTEROL NEB's [Proventil 0.083% 2.5 mg IH 4XD PRN #75 ml 08/04/18 Unknown Rx NEBS] Albuterol Mdi (or & Nicu Only) 2 puff IH QID PRN #1 inhalation 08/04/18 Unknown Rx [ProAir HFA Inhaler] Prednisone [predniSONE 10 mg 10 mg PO .TAPER #1 tab.ds.pk 08/04/18 Unknown Rx (6-Day Pack, 21 Tabs)] ALBUTEROL NEB's [Proventil 0.083% 2.5 mg IH 4XD PRN #1 box 10/07/18 Unknown Rx NEBS] Albuterol Mdi (or & Nicu Only) 2 puff IH QID PRN #1 inhalation 10/07/18 Unknown Rx [ProAir HFA Inhaler] Prednisone [predniSONE 10 mg 10 mg PO .TAPER #1 tab.ds.pk 10/07/18 Unknown Rx (6-Day Pack, 21 Tabs)] Amoxicillin/K Clav Tab [Augmentin 1 tab PO Q12HR #20 tab 04/06/19 Unknown Rx 875 mg] Benzonatate [Tessalon Perles] 100 mg PO Q8HR PRN #20 capsule 04/06/19 Unknown Rx Ibuprofen [Motrin] 600 mg PO Q8H PRN #20 tablet 04/06/19 Unknown Rx Ondansetron [Zofran Odt] 4 mg PO Q8HR PRN #12 tab.rapdis 07/12/19 Unknown Rx Amoxicillin [Amoxicillin TAB] 875 mg PO BID #20 tablet 08/12/20 Unknown Rx Chlorhexidine Mouthwash [Peridex] 15 ml MM BID #1 bottle 08/12/20 Unknown Rx Ketorolac [Toradol] 10 mg PO Q6H PRN #15 tablet 08/12/20 Unknown Rx Lidocaine Viscous 2% 5 ml MM Q3H PRN #120 udc 08/12/20 Unknown Rx traMADoL [Ultram] 50 mg PO Q6HR PRN #20 tablet 08/17/20 Unknown Rx Allergies Allergy/AdvReac Type Severity Reaction Status Date / Time iodine Allergy Rash Verified 06/02/16 16:47 ED Dental HPI - General Chief complaint: Dental/Oral Stated complaint: TOOTHACHE Time Seen by Provider: 08/17/20 01:22 Source: patient Mode of arrival: Ambulatory Limitations: No Limitations - Related Data Previous Rx's Medication Instructions Recorded Last Taken Type Famotidine [Pepcid] 20 mg PO BID #20 tablet 12/10/15 Unknown Rx diphenhydrAMINE [Benadryl CAP] 25 mg PO Q6HR PRN #25 capsule 12/10/15 Unknown Rx Loratadine (Nf) [Claritin] 10 mg PO DAILY #20 tablet 07/02/17 Unknown Rx Azithromycin [Zithromax] 250 mg PO DAILY #6 tablet 07/04/17 Unknown Rx Nebulizer [Compact Compressor 1 each MC DAILY #1 each 07/04/17 Unknown Rx Nebulizer] Prednisone [predniSONE 10 mg 10 mg PO .TAPER #1 tab.ds.pk 07/04/17 Unknown Rx (6-Day Pack, 21 Tabs)] guaiFENesin/CODEINE [Robitussin AC] 5 ml PO Q6HR PRN #120 ml 07/04/17 Unknown Rx HYDROcodone/Acetaminop 7.5-325 15 ml PO Q4HR PRN #150 oz 07/14/17 Unknown Rx [[place] 7.5-325 mg per 15 ML] Ondansetron [Zofran Odt] 4 mg PO TID PRN #10 tab.rapdis 07/14/17 Unknown Rx Benzonatate [Tessalon Perle] 100 mg PO TID PRN #30 capsule 08/13/17 Unknown Rx Cetirizine HCl [Zyrtec 10mg tab] 10 mg PO DAILY #30 tablet 08/13/17 Unknown Rx Cipro/Dexameth 0.3/0.1% [Ciprodex 4 drops OT BID #1 bottle 08/13/17 Unknown Rx OTIC] Albuterol Mdi (or & Nicu Only) 2 puff IH QID PRN #1 inhalation 11/08/18 Unknown Rx [ProAir HFA Inhaler] guaiFENesin/CODEINE [Robitussin AC] 5 ml PO Q6HR #120 oral.liqd 01/22/18 Unknown Rx predniSONE [Prednisone] 50 mg PO DAILY #5 tablet 01/22/18 Unknown Rx Hyoscyamine Subl [Levsin Sl 0.125 0.125 mg SL Q6HR PRN #12 tab 07/08/18 Unknown Rx TAB] Omeprazole 20 mg PO QDAY #30 tablet. 07/08/18 Unknown Rx ALBUTEROL NEB's [Proventil 0.083% 2.5 mg IH 4XD PRN #75 ml 08/04/18 Unknown Rx NEBS] Albuterol Mdi (or & Nicu Only) 2 puff IH QID PRN #1 inhalation 08/04/18 Unknown Rx [ProAir HFA Inhaler] Prednisone [predniSONE 10 mg 10 mg PO .TAPER #1 tab.ds.pk 08/04/18 Unknown Rx (6-Day Pack, 21 Tabs)] ALBUTEROL NEB's [Proventil 0.083% 2.5 mg IH 4XD PRN #1 box 10/07/18 Unknown Rx NEBS] Albuterol Mdi (or & Nicu Only) 2 puff IH QID PRN #1 inhalation 10/07/18 Unknown Rx [ProAir HFA Inhaler] Prednisone [predniSONE 10 mg 10 mg PO .TAPER #1 tab.ds.pk 10/07/18 Unknown Rx (6-Day Pack, 21 Tabs)] Amoxicillin/K Clav Tab [Augmentin 1 tab PO Q12HR #20 tab 04/06/19 Unknown Rx 875 mg] Benzonatate [Tessalon Perles] 100 mg PO Q8HR PRN #20 capsule 04/06/19 Unknown Rx Ibuprofen [Motrin] 600 mg PO Q8H PRN #20 tablet 04/06/19 Unknown Rx Ondansetron [Zofran Odt] 4 mg PO Q8HR PRN #12 tab.rapdis 07/12/19 Unknown Rx Amoxicillin [Amoxicillin TAB] 875 mg PO BID #20 tablet 08/12/20 Unknown Rx Chlorhexidine Mouthwash [Peridex] 15 ml MM BID #1 bottle 08/12/20 Unknown Rx Ketorolac [Toradol] 10 mg PO Q6H PRN #15 tablet 08/12/20 Unknown Rx Lidocaine Viscous 2% 5 ml MM Q3H PRN #120 udc 08/12/20 Unknown Rx traMADoL [Ultram] 50 mg PO Q6HR PRN #20 tablet 08/17/20 Unknown Rx Allergies Allergy/AdvReac Type Severity Reaction Status Date / Time iodine Allergy Rash Verified 06/02/16 16:47 ED Review of Systems ROS: Stated complaint: TOOTHACHE Other details as noted in HPI Comment: All other systems reviewed and negative ED Past Medical Hx - Past Medical History Previous Medical History?: Yes Hx Asthma: Yes Additional medical history: Obesity - Surgical History Past Surgical History?: No - Social History Smoking Status: Never Smoker Substance Use Type: None - Medications Home Medications: Home Medications Medication Instructions Recorded Confirmed Last Taken Type Famotidine [Pepcid] 20 mg PO BID #20 tablet 12/10/15 Unknown Rx diphenhydrAMINE [Benadryl CAP] 25 mg PO Q6HR PRN #25 capsule 12/10/15 Unknown Rx Loratadine (Nf) [Claritin] 10 mg PO DAILY #20 tablet 07/02/17 Unknown Rx Azithromycin [Zithromax] 250 mg PO DAILY #6 tablet 07/04/17 Unknown Rx Nebulizer [Compact Compressor 1 each MC DAILY #1 each 07/04/17 Unknown Rx Nebulizer] Prednisone [predniSONE 10 mg 10 mg PO .TAPER #1 tab.ds.pk 07/04/17 Unknown Rx (6-Day Pack, 21 Tabs)] guaiFENesin/CODEINE [Robitussin AC] 5 ml PO Q6HR PRN #120 ml 07/04/17 Unknown Rx HYDROcodone/Acetaminop 7.5-325 15 ml PO Q4HR PRN #150 oz 07/14/17 Unknown Rx [[place] 7.5-325 mg per 15 ML] Ondansetron [Zofran Odt] 4 mg PO TID PRN #10 tab.rapdis 07/14/17 Unknown Rx Benzonatate [Tessalon Perle] 100 mg PO TID PRN #30 capsule 08/13/17 Unknown Rx Cetirizine HCl [Zyrtec 10mg tab] 10 mg PO DAILY #30 tablet 08/13/17 Unknown Rx Cipro/Dexameth 0.3/0.1% [Ciprodex 4 drops OT BID #1 bottle 08/13/17 Unknown Rx OTIC] Albuterol Mdi (or & Nicu Only) 2 puff IH QID PRN #1 inhalation 01/22/18 Unknown Rx [ProAir HFA Inhaler] guaiFENesin/CODEINE [Robitussin AC] 5 ml PO Q6HR #120 oral.liqd 01/22/18 Unknown Rx predniSONE [Prednisone] 50 mg PO DAILY #5 tablet 01/22/18 Unknown Rx Hyoscyamine Subl [Levsin Sl 0.125 0.125 mg SL Q6HR PRN #12 tab 07/08/18 Unknown Rx TAB] Omeprazole 20 mg PO QDAY #30 tablet.dr 07/08/18 Unknown Rx ALBUTEROL NEB's [Proventil 0.083% 2.5 mg IH 4XD PRN #75 ml 08/04/18 Unknown Rx NEBS] Albuterol Mdi (or & Nicu Only) 2 puff IH QID PRN #1 inhalation 08/04/18 Unknown Rx [ProAir HFA Inhaler] Prednisone [predniSONE 10 mg 10 mg PO .TAPER #1 tab.ds.pk 08/04/18 Unknown Rx (6-Day Pack, 21 Tabs)] ALBUTEROL NEB's [Proventil 0.083% 2.5 mg IH 4XD PRN #1 box 10/07/18 Unknown Rx NEBS] Albuterol Mdi (or & Nicu Only) 2 puff IH QID PRN #1 inhalation 10/07/18 Unknown Rx [ProAir HFA Inhaler] Prednisone [predniSONE 10 mg 10 mg PO .TAPER #1 tab.ds.pk 10/07/18 Unknown Rx (6-Day Pack, 21 Tabs)] Amoxicillin/K Clav Tab [Augmentin 1 tab PO Q12HR #20 tab 04/06/19 Unknown Rx 875 mg] Benzonatate [Tessalon Perles] 100 mg PO Q8HR PRN #20 capsule 04/06/19 Unknown Rx Ibuprofen [Motrin] 600 mg PO Q8H PRN #20 tablet 04/06/19 Unknown Rx Ondansetron [Zofran Odt] 4 mg PO Q8HR PRN #12 tab.rapdis 07/12/19 Unknown Rx Amoxicillin [Amoxicillin TAB] 875 mg PO BID #20 tablet 08/12/20 Unknown Rx Chlorhexidine Mouthwash [Peridex] 15 ml MM BID #1 bottle 08/12/20 Unknown Rx Ketorolac [Toradol] 10 mg PO Q6H PRN #15 tablet 08/12/20 Unknown Rx Lidocaine Viscous 2% 5 ml MM Q3H PRN #120 udc 08/12/20 Unknown Rx traMADoL [Ultram] 50 mg PO Q6HR PRN #20 tablet 08/17/20 Unknown Rx ED Physical Exam - General Limitations: No Limitations General appearance: alert, in no apparent distress - Head Head exam: Present: atraumatic, normocephalic - Eye Eye exam: Present: normal appearance, PERRL, EOMI Pupils: Present: normal accommodation - ENT ENT exam: Present: normal exam, mucous membranes moist - Expanded ENT Exam Expanded Teeth exam: Present: dental caries, dental tenderness # (18-19) Throat exam: Positive: normal inspection - Neck Neck exam: Present: normal inspection, full ROM - Respiratory Respiratory exam: Present: normal lung sounds bilaterally. Absent: respiratory distress - Cardiovascular Cardiovascular Exam: Present: regular rate, normal rhythm, normal heart sounds. Absent: systolic murmur, diastolic murmur, rubs, gallop - GI/Abdominal GI/Abdominal exam: Present: soft, normal bowel sounds. Absent: distended, tenderness, guarding, hyperactive bowel sounds, hypoactive bowel sounds, organomegaly - Extremities Exam Extremities exam: Present: normal inspection, normal capillary refill - Back Exam Back exam: Present: normal inspection - Neurological Exam Neurological exam: Present: alert, oriented X3 - Psychiatric Psychiatric exam: Present: normal affect, normal mood - Skin Skin exam: Present: warm, dry, intact, normal color. Absent: rash ED Course Vital Signs 08/17/20 00:27 Temperature 98.6 F Pulse Rate 91 H Respiratory 18 Rate Blood Pressure 122/82 O2 Sat by Pulse 98 Oximetry Critical care attestation.: If time is entered above; I have spent that time in minutes in the direct care of this critically ill patient, excluding procedure time. ED Disposition Clinical Impression: Dentalgia, Dental caries Disposition: [id number] TO HOME OR SELFCARE Is pt being admited?: No Does the pt Need Aspirin: No Condition: Stable Instructions: Preventive Dental Care, Adult, Dental Extraction, [id number] Additional Instructions: Please fill your lidocaine viscous continue the pain medications be sure to follow-up with the dentist for definitive treatment Prescriptions: traMADoL [Ultram] 50 mg PO Q6HR PRN #20 tablet PRN Reason: Pain Referrals: [facility] [Outside] - 3-5 Days
[2020-08-17] MEDS ORDERED: LIDOCAINE VISCOUS 2% 15 ML ORAL LIQD MM NR (02:45)
== END 2020-08-17 02:00 | disposition home or self-care (01) ==
LOC: ED 00:19
DX: K02.9 Dental caries, unspecified (principal); K08.89 Other specified disorders of teeth and supporting structures; J45.909 Unspecified asthma, uncomplicated; Z79.1 Long term (current) use of non-steroidal anti-inflammatories (NSAID); Z79.2 Long term (current) use of antibiotics; Z79.899 Other long term (current) drug therapy; Z88.8 Allergy status to other drugs, medicaments and biological substances
CPT/HCPCS: 99282